=== PATIENT | male | born 1955 | race Caucasian/White ===

== ENCOUNTER → 2022-04-01 07:57 | Outpatient (CLI) | payer MEDICARE, OTHER, SELFPAY ==
[2022-04-01 08:25] LABS: Add Manual Diff / Slide Review NO; Basophils Absolute Auto 0 /uL (0-100); Basophils Percent Auto 0.8 % (0-2); Eosinophils Absolute Auto 100 /uL (0-450); Hematocrit 42.2 % (41-53); Hemoglobin 14.2 g/dL (13.5-17.5); Lymphocytes Absolute Auto 1300 /uL (1100-4500); Mean Corpuscular HGB Conc 33.6 % (30-36); Mean Corpuscular Hemoglobin 31.3 PG (26-34); Mean Corpuscular Volume 93.1 fL (80-100); Monocytes Absolute Auto 300 /uL (0-900); Monocytes Percent Auto 7.4 % (3-14); Neutrophils Absolute Auto 2600 /uL (1500-7000); Neutrophils Percent Auto 58.8 % (50-75); Platelet Count 278 X10^3/uL (150-400); Red Blood Cell Count 4.54 X10^6/uL (4.5-5.9); Red Cell Distribution Width 13.4 % (11.6-14.8); White Blood Cell Count 4.5 X10^3/uL (4.5-11.0)
[2022-04-01 09:31] LABS: Alanine Aminotransferase 26 IU/L (<50); Alkaline Phosphatase 77 U/L (38-126); Aspartate Aminotransferase 25 IU/L (17-59); BUN Creatinine Ratio 14.9 (6-22); Bilirubin Total 1.9 mg/dL (0.2-1.3); Blood Urea Nitrogen 11 mg/dL (9-20); Calcium 9.2 mg/dL (8.4-10.2); Carbon Dioxide 25 mmol/L (22-32); Chloride 99 mmol/L (98-107); Cholesterol 154 mg/dL (140-199); Estimated Glomerular Filt Rate > 60 mL/min (>60); Glucose 99 mg/dL (80-110); HDL Cholesterol 51 mg/dL (40-60); HEMOLYSIS < 15 (0-50); LDL Cholesterol Calculated 90 mg/dL (<100); Potassium 4.2 mmol/L (3.4-5.1); Sodium 135 mmol/L (137-145); Total Protein 7.3 g/dL (6.3-8.2); Triglycerides 63 mg/dL (35-150)
[2022-04-01 09:44] LABS: Vitamin D 25 Hydroxy (D3) 38.8 ng/mL (30.0-100.0)
[2022-04-05 15:42] LABS: Albumin 4.4 g/dL (3.5-5.0); Albumin Globulin Ratio 1.5 (1.0-2.8); Globulin 2.9 g/dL (1.7-4.1)
== END ==
PROVIDERS: PCP Family Medicine; Referring Provider Family Medicine; Visit Provider Family Medicine
DX: E78.5 Hyperlipidemia, unspecified (principal); E55.9 Vitamin D deficiency, unspecified
CPT/HCPCS: 36415; 80053; 80061; 82306; 83036; 85025

== ENCOUNTER → 2022-04-08 10:57 | Outpatient (CLI) | payer MEDICARE, OTHER, SELFPAY ==
[2022-04-09 07:37] LABS: Fecal Immunochemical Test Negative (Negative)
== END ==
PROVIDERS: PCP Family Medicine; Referring Provider Family Medicine; Visit Provider Family Medicine
DX: Z12.11 Encounter for screening for malignant neoplasm of colon (principal)
CPT/HCPCS: 82274

== ENCOUNTER 2022-10-13 09:56 | Inpatient (IN) | payer MEDICARE, OTHER, SELFPAY ==
[2022-10-13] VITALS (19 sets, daily range): BP systolic 119–155; BP diastolic 64–81; PULSE 81–94; RESP 16–18; TEMP 36.9–38.8; O2SAT 92–98; BMI 23.5; BMI 24.0
--- NOTE | 2022-10-13 10:08 | ED.GENADULT ---
HPI - General Adult General Chief complaint: Urogenital-Male Stated complaint: rib pain, diff breathing Time Seen by Provider: 10/13/22 10:03 History of Present Illness HPI narrative: 67-year-old male former smoker with history of hyperlipidemia and chronic sinusitis presents with his in the chief complaint of right-sided chest and flank pain with fevers for the past few days. He states that he has sharp and stabbing pain that is worse with deep breath and with motion. He states that he feels short of breath but is certain that it is only because breathing hurts. His fevers just started last night. He denies any nausea or vomiting. He denies any diarrhea but has had episodes of constipation. He has been self cathing himself for quite some time secondary to a weak bladder that is thought to be related to urethral strictures secondary to a trauma at a young age. He denies any history of cancer or blood clot, he denies recent travel, trauma or injury. He states it for some time he is had little taste for food and has lost weight as a consequence. He feels overall fatigued and generally unwell Related Data Home Medications Medication Instructions Recorded Confirmed cholecalciferol (vitamin D3) 25 25 mcg PO DAILY 02/18/22 10/13/22 mcg (1,000 unit) capsule famotidine 20 mg tablet 20 mg PO BID 02/18/22 10/13/22 triamcinolone acetonide 0.1 % 1 applic topical BEDTIME PRN Skin 02/18/22 10/13/22 topical ointment Irritation Previous Rx's Medication Instructions Recorded atorvastatin 40 mg tablet 40 mg PO DAILY #90 tabs 02/18/22 fluticasone propionate 50 2 spray intranasal DAILY PRN nasal 06/04/22 mcg/actuation nasal congestion #16 grams spray,suspension (Flonase Allergy Relief) Allergies Allergy/AdvReac Type Severity Reaction Status Date / Time No Known Drug Allergies Allergy Unverified 06/04/22 14:34 Review of Systems Review of Systems Narrative: GENERAL: See HPI HEENT: Denies sinus pain, ear pain, sore throat, difficulty swallowing, dizziness. RESPIRATORY: See HPI CARDIOVASCULAR: Denies chest pain, palpitations, orthopnea, edema, GASTROINTESTINAL: Denies nausea, vomiting, abdominal pain, diarrhea, constipation, melena. : Denies dysuria, frequency, incontinence, hematuria, urinary retention. MUSCULOSKELETAL: denies weakness, joint pain, or bony pain SKIN: Denies rash, skin lesions, or other NEUROLOGIC: Denies weakness, headache, numbness, change in speech, confusion, seizures, incoordination. PSYCHIATRIC: No concerning psychosocial issues. 12 point review of systems is negative except for those stated above Patient History Medical History (Updated 10/13/22 @ 14:24 by Geovany Villafana DO) Atonic bladder Chicken pox Hearing loss (~1984) Hyperlipidemia Measles Medicare annual wellness visit, initial Memory change Mumps Self-catheterizes urinary bladder Urethral stricture Vitamin D deficiency Surgical History (Updated 04/01/22 @ 21:22 by Kailyn Rosa) Anesthesia History of elbow surgery History of left hip replacement (~04/2007) History of right hip replacement (~01/2008) History of tonsillectomy (~1966) Urethral stricture Family History (Updated 04/01/22 @ 21:24 by Kailyn Rosa) Father History of heart disease Hyperlipidemia Grandfather Cancer Grandmother Stroke Grandmother Cancer Social History household members: spouse Smoking Status: Former smoker alcohol intake: former Smoking Status: Unknown if ever smoked Exam Narrative Exam Narrative: GENERAL: [67] year old patient appears stated age. Well-developed patient, in mild distress. HEAD: Atraumatic. Normocephalic. EYES: Pupils equal round and reactive. Extraocular motions intact. No scleral icterus. No injection or drainage. ENT: Nose without bleeding, purulent drainage. Throat without erythema, tonsillar hypertrophy or exudate. Airway patent. NECK: Trachea midline. Non tender CARDIOVASCULAR: Regular rate and rhythm without murmurs, gallops, or rubs. RESPIRATORY: rapid shallow breathing, appears painful. Decreased sounds R base. GASTROINTESTINAL: Abdomen soft, non-tender, nondistended. EXTREMITIES: No edema or joint tenderness. BACK: Nontender without deformity or crepitance. No flank tenderness. NEURO: AOx3. SKIN: No rash or erythema of visible areas Initial Vital Signs Initial Vital Signs: Vital Signs Temperature 98.5 F 10/13/22 09:59 Pulse Rate 93 H 10/13/22 09:59 Respiratory Rate 16 10/13/22 09:59 Blood Pressure 155/81 H 10/13/22 09:59 Pulse Oximetry 96 10/13/22 09:59 Oxygen Delivery Method Room Air 10/13/22 09:59 Course Orders Ordered: ED Orders 10/13/22 10:17 Urine Microscopic Stat 10/13/22 10:20 XR chest 1V Stat BNP [NT-proBNP (BNP-Adult 18+)] Stat Complete Blood Count AUTO DIFF Stat Comprehensive Metabolic Panel Stat D Dimer Stat Lactate (Lactic Acid) Stat Lipase Stat PTT Partial Thromboplastin Alvarez Stat Procalcitonin Stat Prothrombin Time INR Stat Troponin & CK Cardiac Panel Stat RT Consult Eval and Treat NOW 10/13/22 10:40 EKG-12 Lead Stat 10/13/22 10:50 Blood Culture Stat 10/13/22 11:01 CT angio chest PE protocol Stat 10/13/22 11:02 CT abdomen pelvis w con Stat Acetaminophen (Acetaminophen 325 Mg Tablet) 650 mg PO Q4H PRN PRN Reason: Fever/Mild Pain (1-3) Atorvastatin Calcium (Atorvastatin 20 Mg Tablet) 40 mg PO DAILY ARELY Famotidine (Famotidine 20 Mg Tablet) 20 mg PO BID ARELY Fluticasone Propionate (Fluticasone 120 [place]/16 Gm [place].Susp) 2 spray NASAL DAILY PRN PRN Reason: nasal congestion Heparin Sodium (Porcine) (Heparin 5,000 Unit/Ml Vial) 5,000 unit SUBCUT BID ARELY Hydromorphone HCl (Hydromorphone 0.5 Mg Inj) 0.5 mg IV Q3H PRN PRN Reason: Pain, Moderate (4-6) Hydromorphone HCl (Hydromorphone 2 Mg Tablet) 2 mg PO Q3H PRN PRN Reason: Pain, Severe (7-10) Ceftriaxone Sodium 2,000 mg/ (Sodium Chloride) 100 mls @ 200 mls/hr IV Q24H ARELY Metronidazole (Flagyl) 500 mg in 100 mls @ 100 mls/hr IV Q8H ARELY Loratadine (Loratadine 10 Mg Tablet) 10 mg PO DAILY PRN PRN Reason: allergy symptoms Melatonin (Melatonin 3 Mg Tablet) 3 mg PO BEDTIME ARELY Ondansetron HCl (Ondansetron 4 Mg/2 Ml Inj) 4 mg IV Q4HR PRN PRN Reason: Nausea And Vomiting Sennosides (Sennosides 8.6 Mg Tablet) 17.2 mg PO BEDTIME ARELY Vitamin D (Cholecalciferol (Vitamin D3) 1,000 Unit Tablet) 1,000 unit PO DAILY ARELY Discontinued Medications Sodium Chloride (Normal Saline 0.9%) 1,000 mls @ 1,000 mls/hr IV BOLUS ONE Stop: 10/13/22 11:19 Last Infusion: 10/13/22 13:21 Dose: 0 mls/hr Documented By: Admin: 10/13/22 10:40 Dose: 1,000 mls/hr Documented By: AILEEN Ceftriaxone Sodium 2,000 mg/ (Sodium Chloride) 100 mls @ 200 mls/hr IV NOW ONE Stop: 10/13/22 13:49 Last Infusion: 10/13/22 14:38 Dose: 0 mls/hr Documented By: Admin: 10/13/22 14:08 Dose: 200 mls/hr Documented By: JORDON Metronidazole (Flagyl) 500 mg in 100 mls @ 100 mls/hr IV NOW ONE Stop: 10/13/22 14:47 Last Infusion: 10/13/22 16:00 Dose: 0 mls/hr Documented By: Admin: 10/13/22 14:19 Dose: 100 mls/hr Documented By: PATRIC Ketorolac Tromethamine (Ketorolac 30 Mg/Ml Vial) 15 mg IV NOW ONE Stop: 10/13/22 11:57 Last Admin: 10/13/22 12:03 Dose: Not Given Documented By: JORDON Vital Signs Vital signs: Vital Signs - 8 hr 10/13/22 09:59 10/13/22 10:29 10/13/22 10:30 Temperature 98.5 F Pulse Rate 93 H 85 Respiratory Rate 16 Blood Pressure 155/81 H 127/68 Pulse Oximetry 96 98 Oxygen Delivery Method Room Air 10/13/22 10:30 10/13/22 11:00 10/13/22 11:01 Temperature Pulse Rate 81 94 H Respiratory Rate Blood Pressure 136/71 Pulse Oximetry 98 98 Oxygen Delivery Method 10/13/22 11:01 10/13/22 11:30 10/13/22 11:30 Temperature Pulse Rate 88 83 Respiratory Rate Blood Pressure 125/68 Pulse Oximetry 96 98 Oxygen Delivery Method 10/13/22 12:00 10/13/22 12:01 10/13/22 12:01 Temperature Pulse Rate 89 89 Respiratory Rate Blood Pressure 145/72 H Pulse Oximetry 98 98 Oxygen Delivery Method 10/13/22 12:30 10/13/22 12:30 10/13/22 13:00 Temperature Pulse Rate 83 Respiratory Rate Blood Pressure 127/70 119/64 Pulse Oximetry 98 Oxygen Delivery Method 10/13/22 13:00 10/13/22 13:30 10/13/22 13:30 Temperature Pulse Rate 82 82 Respiratory Rate Blood Pressure 130/69 Pulse Oximetry 97 98 Oxygen Delivery Method 10/13/22 14:00 10/13/22 14:00 Temperature Pulse Rate 82 Respiratory Rate Blood Pressure 133/69 Pulse Oximetry 97 Oxygen Delivery Method Medical Decision Making Lab Data 10/13/22 10:20 10/13/22 10:20 Labs: Lab Results 10/13/22 10/13/22 10/13/22 Range/Units 10:17 10:20 10:20 WBC 16.7 H (4.5-11.0) X10^3/uL RBC 3.99 L (4.5-5.9) X10^6/uL Hgb 11.0 L (13.5-17.5) g/dL Hct 33.0 L (41-53) % MCV 82.9 (80-100) fL MCH 27.5 (26-34) PG MCHC 33.1 (30-36) % RDW 15.1 H (11.6-14.8) % Plt Count 619 H (150-400) X10^3/uL Neut % (Auto) 90.4 H (50-75) % Lymph % (Auto) 3.4 L (25-40) % [place] % (Auto) 6.0 (3-14) % Eos % (Auto) 0.1 L (2-4) % Baso % (Auto) 0.1 (0-2) % Neut # (Auto) 23486 H (0706-7918) /uL Lymph # (Auto) 600 L (7727-2071) /uL [place] # (Auto) 1000 H (0-900) /uL Eos # (Auto) 0 (0-450) /uL Baso # (Auto) 0 (0-100) /uL PT 16.2 H (10.1-12.7) SECONDS INR 1.4 H (0.9-1.3) APTT 33 (26-36) SECONDS D-Dimer (<500) ng/ml Sodium (137-145) mmol/L Potassium (3.4-5.1) mmol/L Chloride (98-107) mmol/L Carbon Dioxide (22-32) mmol/L BUN (9-20) mg/dL Creatinine (0.66-1.25) mg/dL Estimated GFR (>60) mL/min BUN/Creatinine Ratio (6-22) Glucose (80-110) mg/dL Lactate (0.7-2.1) mmol/L Calcium (8.4-10.2) mg/dL Total Bilirubin (0.2-1.3) mg/dL AST (17-59) IU/L ALT (<50) IU/L Alkaline Phosphatase (38-126) U/L Total Creatine Kinase (55-170) U/L Troponin I (0.01-0.034) ng/mL NT-Pro-B Natriuret Pep (<125) pg/mL Total Protein (6.3-8.2) g/dL Albumin (3.5-5.0) g/dL Globulin (1.7-4.1) g/dL Albumin/Globulin Ratio (1.0-2.8) Lipase (23-300) U/L Procalcitonin (<0.5) ng/mL Urine RBC 0-1/hpf (0-5/HPF) Urine WBC 0-1/hpf (0-5/HPF) Ur Squamous Epith Cells None seen (0-5/HPF) Urine Bacteria None seen (None) Ur Culture Indicated? Cult not indicated 10/13/22 10/13/22 10/13/22 Range/Units 10:20 10:20 10:20 WBC (4.5-11.0) X10^3/uL RBC (4.5-5.9) X10^6/uL Hgb (13.5-17.5) g/dL Hct (41-53) % MCV (80-100) fL MCH (26-34) PG MCHC (30-36) % RDW (11.6-14.8) % Plt Count (150-400) X10^3/uL Neut % (Auto) (50-75) % Lymph % (Auto) (25-40) % [place] % (Auto) (3-14) % Eos % (Auto) (2-4) % Baso % (Auto) (0-2) % Neut # (Auto) (7087-9813) /uL Lymph # (Auto) (6995-7454) /uL [place] # (Auto) (0-900) /uL Eos # (Auto) (0-450) /uL Baso # (Auto) (0-100) /uL PT (10.1-12.7) SECONDS INR (0.9-1.3) APTT (26-36) SECONDS D-Dimer 1659 H (<500) ng/ml Sodium 133 L (137-145) mmol/L Potassium 4.2 (3.4-5.1) mmol/L Chloride 95 L (98-107) mmol/L Carbon Dioxide 28 (22-32) mmol/L BUN 9 (9-20) mg/dL Creatinine 0.61 L (0.66-1.25) mg/dL Estimated GFR > 60 (>60) mL/min BUN/Creatinine Ratio 14.8 (6-22) Glucose 111 H (80-110) mg/dL Lactate 1.2 (0.7-2.1) mmol/L Calcium 9.0 (8.4-10.2) mg/dL Total Bilirubin 1.1 (0.2-1.3) mg/dL AST 22 (17-59) IU/L ALT 22 (<50) IU/L Alkaline Phosphatase 165 H (38-126) U/L Total Creatine Kinase (55-170) U/L Troponin I (0.01-0.034) ng/mL NT-Pro-B Natriuret Pep (<125) pg/mL Total Protein 7.2 (6.3-8.2) g/dL Albumin 3.6 (3.5-5.0) g/dL Globulin 3.6 (1.7-4.1) g/dL Albumin/Globulin Ratio 1.0 (1.0-2.8) Lipase 47 (23-300) U/L Procalcitonin 0.44 (<0.5) ng/mL Urine RBC (0-5/HPF) Urine WBC (0-5/HPF) Ur Squamous Epith Cells (0-5/HPF) Urine Bacteria (None) Ur Culture Indicated? 10/13/22 Range/Units 10:20 WBC (4.5-11.0) X10^3/uL RBC (4.5-5.9) X10^6/uL Hgb (13.5-17.5) g/dL Hct (41-53) % MCV (80-100) fL MCH (26-34) PG MCHC (30-36) % RDW (11.6-14.8) % Plt Count (150-400) X10^3/uL Neut % (Auto) (50-75) % Lymph % (Auto) (25-40) % [place] % (Auto) (3-14) % Eos % (Auto) (2-4) % Baso % (Auto) (0-2) % Neut # (Auto) (0212-4670) /uL Lymph # (Auto) (6159-8204) /uL [place] # (Auto) (0-900) /uL Eos # (Auto) (0-450) /uL Baso # (Auto) (0-100) /uL PT (10.1-12.7) SECONDS INR (0.9-1.3) APTT (26-36) SECONDS D-Dimer (<500) ng/ml Sodium (137-145) mmol/L Potassium (3.4-5.1) mmol/L Chloride (98-107) mmol/L Carbon Dioxide (22-32) mmol/L BUN (9-20) mg/dL Creatinine (0.66-1.25) mg/dL Estimated GFR (>60) mL/min BUN/Creatinine Ratio (6-22) Glucose (80-110) mg/dL Lactate (0.7-2.1) mmol/L Calcium (8.4-10.2) mg/dL Total Bilirubin (0.2-1.3) mg/dL AST (17-59) IU/L ALT (<50) IU/L Alkaline Phosphatase (38-126) U/L Total Creatine Kinase 28 L (55-170) U/L Troponin I < 0.012 (0.01-0.034) ng/mL NT-Pro-B Natriuret Pep 261 H (<125) pg/mL Total Protein (6.3-8.2) g/dL Albumin (3.5-5.0) g/dL Globulin (1.7-4.1) g/dL Albumin/Globulin Ratio (1.0-2.8) Lipase (23-300) U/L Procalcitonin (<0.5) ng/mL Urine RBC (0-5/HPF) Urine WBC (0-5/HPF) Ur Squamous Epith Cells (0-5/HPF) Urine Bacteria (None) Ur Culture Indicated? Urine Dip Bedside Urine Glucose Negative Bedside Urine Bilirubin - Negative Bedside Urine Ketone - Negative Urine Specific [place] 1.000 Bedside Urine Occult Blood +/- Bedside Urine pH 6.0 Bedside Urine Protein - Negative Bedside Urine Urobilinogen - Negative Bedside Urine Nitrite - Negative Bedside Urine Leukocytes - Negative Esterase Point of care testing: Urine Dip Bedside Urine Glucose Negative Bedside Urine Bilirubin - Negative Bedside Urine Ketone - Negative Urine Specific [place] 1.000 Bedside Urine Occult Blood +/- Bedside Urine pH 6.0 Bedside Urine Protein - Negative Bedside Urine Urobilinogen - Negative Bedside Urine Nitrite - Negative Bedside Urine Leukocytes - Negative Esterase MDM Narrative Medical decision making narrative: CC: 67-year-old male presents with fever, chills and right-sided pleuritic-type chest pain with shortness of breath Complicating co-morbidities: Age, former smoker Data collected from: Patient Medical records reviewed: Prior notes reviewed in our EMR Differential considered, but not limited to: Pneumonia versus pulmonary embolism versus pyelonephritis versus other Exam documented above, pertinent findings include: Obviously uncomfortable, rapid shallow breathing, decreased lung sounds right base, abdomen soft Lab Test results independently reviewed as above. Pertinent findings: Leukocytosis with left shift, electrolytes and renal function within normal limits, alk-phos slightly elevated, procalcitonin elevated at 0.44 Independently reviewed EKG as above Imaging studies independently reviewed: Chest x-ray demonstrates right lower lobe pneumonia, CT angiogram chest with PE protocol demonstrates no PE but does note a 6.4 x 5.9 cm abutting the lateral pleura with associated pleural effusion, suggesting either large necrotic appearing mass or less likely infectious process. Consultations: 1.Dr. Jimenez (Radiology) - recommends admission, ABX for a few days, re-image, then discussion about possible CT guided drainage 2.Dr. Valles (Gen Surg [facility]) - agress with above, no ability to accept patient today, likely could receive appropriate care her Treatments: Re-evaluations: Discussion: Disposition: see below, along with detailed discharge instructions that have been reviewed with patient as well as indications for ED re-evaluation and additional outpatient follow up Discharge Plan Departure Patient Disposition: Admitted As Inpatient Clinical Impression: Right lower lobe lung mass, Pleural effusion Admit Date/Time: 10/13/22 14:16 Admit Provider: Marielle Baltazar
--- NOTE | 2022-10-13 10:20 | DI.RAD.S_ITS ---
PROCEDURE: XR CHEST 1V INDICATIONS: suspected sepsis TECHNIQUE: One view of the chest was acquired. COMPARISON: None. FINDINGS: Surgical changes and devices: None. Lungs and pleura: Right lower lobe pulmonary infiltrate present. Left lung and both pleural spaces clear Mediastinum: Mediastinal contours appear normal. Heart size is normal. Bones and chest wall: No suspicious bony lesions. Overlying soft tissues appear unremarkable. Old healed right clavicular fracture IMPRESSION: Right lower lobe pulmonary infiltrate, consistent with pneumonia Approved by: Adrian Villagomez M.D. on 10/13/2022 at 10:41
[2022-10-13 10:33] LABS: Add Manual Diff / Slide Review NO; Basophils Absolute Auto 0 /uL (0-100); Basophils Percent Auto 0.1 % (0-2); Eosinophils Absolute Auto 0 /uL (0-450); Eosinophils Percent Auto 0.1 % (2-4); Lymphocytes Absolute Auto 600 /uL (1100-4500); Lymphocytes Percent Auto 3.4 % (25-40); Mean Corpuscular HGB Conc 33.1 % (30-36); Mean Corpuscular Hemoglobin 27.5 PG (26-34); Mean Corpuscular Volume 82.9 fL (80-100); Monocytes Absolute Auto 1000 /uL (0-900); Neutrophils Absolute Auto 15100 /uL (1500-7000); Neutrophils Percent Auto 90.4 % (50-75); Platelet Count 619 X10^3/uL (150-400); Red Blood Cell Count 3.99 X10^6/uL (4.5-5.9); Red Cell Distribution Width 15.1 % (11.6-14.8); White Blood Cell Count 16.7 X10^3/uL (4.5-11.0)
[2022-10-13] MEDS: SODIUM CHLORIDE 0.9% 1,000 ML 1000 ML IV (10:40)
[2022-10-13 10:47] LABS: INR 1.4 (0.9-1.3); Prothrombin Time 16.2 SECONDS (10.1-12.7)
[2022-10-13 10:48] LABS: Bacteria Urine None Seen; Culture Indicated Urine Cult Not Indicated; RBC Urine 0-1/HPF (0-5/HPF); Squamous Epithelial Cell Urine None Seen (0-5/HPF); WBC Urine 0-1/HPF (0-5/HPF)
[2022-10-13 10:50] LABS: Creatine Kinase 28 U/L (55-170); PTT Partial Thromboplastin Tim 33 SECONDS (26-36)
[2022-10-13 10:51] LABS: Lactate (Lactic Acid) 1.2 mmol/L (0.7-2.1)
[2022-10-13 10:58] LABS: Alanine Aminotransferase 22 IU/L (<50); Albumin 3.6 g/dL (3.5-5.0); Alkaline Phosphatase 165 U/L (38-126); Aspartate Aminotransferase 22 IU/L (17-59); BUN Creatinine Ratio 14.8 (6-22); Bilirubin Total 1.1 mg/dL (0.2-1.3); Blood Urea Nitrogen 9 mg/dL (9-20); Carbon Dioxide 28 mmol/L (22-32); Chloride 95 mmol/L (98-107); Estimated Glomerular Filt Rate > 60 mL/min (>60); Globulin 3.6 g/dL (1.7-4.1); Glucose 111 mg/dL (80-110); HEMOLYSIS < 15 (0-50); Lipase 47 U/L (23-300); Potassium 4.2 mmol/L (3.4-5.1); Sodium 133 mmol/L (137-145); Total Protein 7.2 g/dL (6.3-8.2)
[2022-10-13 11:00] LABS: D Dimer 1659 ng/ml (<500)
--- NOTE | 2022-10-13 11:01 | DI.CT.S_ITS ---
PROCEDURE: CT ANGIO CHEST PE PROTOCOL INDICATIONS: chest pain, pleuritic, critical Dimer TECHNIQUE: After the administration of intravenous contrast, 2 mm thick sections acquired from the pulmonary apices to the posterior costophrenic angles. MIP reformats of the arterial vasculature were utilized. For radiation dose reduction, the following was used: automated exposure control, adjustment of mA and/or kV according to patient size. COMPARISON: None. FINDINGS: Image quality: Excellent. Pulmonary arteries: Pulmonary arteries are normal in size, and demonstrate no intraluminal filling defects to suggest central pulmonary embolism. Lungs and pleura: In the right lower lobe, there is a large necrotic appearing mass lesion measuring 6.4 by 5.9 cm abutting the lateral pleural . Associated small pleural effusion present as well. There is a benign-appearing calcified nodule in the left lower lobe measuring 7 mm. Pleural spaces clear. No mediastinal or axillary adenopathy. No rib erosion. Mediastinum: Heart size is normal, without pericardial effusion. No mediastinal or hilar adenopathy. Thoracic aorta is normal in caliber and enhancement. Esophagus is normal in caliber, without hiatal hernia. Bones and chest wall: No suspicious bony lesions. Ribs and thoracic spine appear intact throughout. Thyroid gland unremarkable. No axillary or supraclavicular adenopathy. Abdomen: Visualized upper abdominal solid organs appear normal in the early arterial phase of enhancement. Small left hepatic simple cyst. Multiple splenic granulomatous IMPRESSION: No evidence of pulmonary embolism, aortic aneurysm or dissection. Large right lower lobe neck chronic appearing mass lesion would be amendable to CT-guided percutaneous biopsy. Right lower lobe pleural effusion Approved by: Adrian Villagomez M.D. on 10/13/2022 at 11:52
--- NOTE | 2022-10-13 11:02 | DI.CT.S_ITS ---
PROCEDURE: CT ABDOMEN PELVIS W CON INDICATIONS: severe R flank pain, weight loss TECHNIQUE: After the administration of intravenous contrast, axial sections acquired from the lung bases to the pubic symphysis. Coronal and sagittal reformats were performed. For radiation dose reduction, the following was used: automated exposure control, adjustment of mA and/or kV according to patient size. COMPARISON: None. FINDINGS: Lower thorax: In the right lower lobe, there is an irregular mass lesion with internal fluid and irregular peripheral soft tissue. There is pleural thickening no evidence of rib erosion or chest wall invasion. Associated pleural effusion present as well. Left lung is clear. Liver: Normal in size and attenuation. No contour deformity present. Small subcentimeter left hepatic simple cyst. Biliary system: No calcified cholelithiasis or pericholecystic inflammation. No intra or extrahepatic bile duct dilatation. Pancreas: Unremarkable without mass or inflammation evident. Spleen: Splenic calcified granulomas present. Adrenals: Normal morphology and density. Reproductive system: Unremarkable as visualized. Urinary system: Normal renal size and attenuation. No renal calculi, hydronephrosis, or solid mass present. Urinary bladder unremarkable. Gastrointestinal system: Moderate fecal debris in the right colon Appendix: Normal appendix identified. No evidence of appendicitis. Peritoneal spaces: No mesenteric or retroperitoneal adenopathy. No free air. No free fluid. Vasculature: The IVC, aorta and iliac vasculature are unremarkable. Abdominal wall: Abdominal wall intact without evidence of ventral or inguinal hernias. Musculoskeletal: Normal bone mineralization. Degenerative disc disease and arthropathy noted in lower lumbar spine. Severe central stenosis L4-5, L3-4 Bilateral hip prosthesis limits assessment of images in the pelvis No acute fractures. IMPRESSION: 1. Right lower lobe irregular mass lesion with central fluid. Differential includes neoplasm, abscess and less likely empyema. Consider percutaneous drainage/biopsy. 2. Degenerative disc disease and arthropathy results in severe central stenosis L3-4 and L4-5 Approved by: Adrian Villagomez M.D. on 10/13/2022 at 12:02
[2022-10-13 11:03] LABS: NT-proBNP (BNP-Adult 18+) 261 pg/mL (<125); Troponin I < 0.012 ng/mL (0.01-0.034)
[2022-10-13 11:15] LABS: Procalcitonin 0.44 ng/mL (<0.5)
[2022-10-13] MEDS: cefTRIAXone 2,000 MG in SODIUM CHLORIDE 0.9% 100 ML 200 MG IV (14:08)
[2022-10-13] MEDS: metroNIDAZOLE 500 MG/100 ML PIGGYBACK 100 MG IV ×2 (14:19→23:26)
--- NOTE | 2022-10-13 15:47 | PM.HP.1 ---
History of Present Illness History of Present Illness Date Patient Seen: 10/13/22 Chief complaint: rib pain, diff breathing Narrative: Theron Stallings is a 67-year-old male former smoker with history of hyperlipidemia and chronic sinusitis presents with his in the chief complaint of right-sided chest and flank pain with fevers for the past few days.? He stated that he has sharp and stabbing pain that is worse with deep breath and with motion.? He stated that he feels short of breath but is certain that it is only because breathing hurts.? His fevers just started last night.? He denied any nausea or vomiting.? He denied any diarrhea but has had episodes of constipation.? He has been self cathing himself for quite some time secondary to a weak bladder that is thought to be related to urethral strictures secondary to a trauma at a young age.? He denied any history of cancer or blood clot, he denied recent travel, trauma or injury.? He stated it for some time he is had little taste for food and has lost weight as a consequence.? He has felt overall fatigued and generally unwell recently. [facility] Medical History (Updated 10/13/22 @ 14:24 by Geovany Villafana DO) Atonic bladder Chicken pox Hearing loss (~1984) Hyperlipidemia Measles Medicare annual wellness visit, initial Memory change Mumps Self-catheterizes urinary bladder Urethral stricture Vitamin D deficiency Surgical History (Updated 04/01/22 @ 21:22 by Kailyn Rosa) Anesthesia History of elbow surgery History of left hip replacement (~04/2007) History of right hip replacement (~01/2008) History of tonsillectomy (~1966) Urethral stricture Family History (Updated 04/01/22 @ 21:24 by Kailyn Rosa) Father History of heart disease Hyperlipidemia Grandfather Cancer Grandmother Stroke Grandmother Cancer Social History Smoking Status: Unknown if ever smoked Meds Home Medications and Allergies Home Medications Medication Instructions Recorded Confirmed Type atorvastatin 40 mg tablet 40 mg PO DAILY #90 tabs 02/18/22 10/13/22 Rx cholecalciferol (vitamin D3) 25 25 mcg PO DAILY 02/18/22 10/13/22 History mcg (1,000 unit) capsule famotidine 20 mg tablet 20 mg PO BID 02/18/22 10/13/22 History triamcinolone acetonide 0.1 % 1 applic topical BEDTIME PRN Skin 02/18/22 10/13/22 History topical ointment Irritation fluticasone propionate 50 2 spray intranasal DAILY PRN nasal 06/04/22 10/13/22 Rx mcg/actuation nasal congestion #16 grams spray,suspension (Flonase Allergy Relief) Allergies Allergy/AdvReac Type Severity Reaction Status Date / Time No Known Drug Allergies Allergy Unverified 06/04/22 14:34 Review of Systems Review of Systems Narrative: Fourteen system review was completed and pertinent findings in the history of chief complaint. Exam Vital Signs (past 8 hours): - 10/13/22 09:59 10/13/22 10:29 10/13/22 10:30 Temperature 98.5 F Pulse Rate 93 H 85 Respiratory Rate 16 Blood Pressure 155/81 H 127/68 Pulse Oximetry 96 98 Oxygen Delivery Method Room Air 10/13/22 10:30 10/13/22 11:00 10/13/22 11:01 Temperature Pulse Rate 81 94 H Respiratory Rate Blood Pressure 136/71 Pulse Oximetry 98 98 Oxygen Delivery Method 10/13/22 11:01 10/13/22 11:30 10/13/22 11:30 Temperature Pulse Rate 88 83 Respiratory Rate Blood Pressure 125/68 Pulse Oximetry 96 98 Oxygen Delivery Method 10/13/22 12:00 10/13/22 12:01 10/13/22 12:01 Temperature Pulse Rate 89 89 Respiratory Rate Blood Pressure 145/72 H Pulse Oximetry 98 98 Oxygen Delivery Method 10/13/22 12:30 10/13/22 12:30 10/13/22 13:00 Temperature Pulse Rate 83 Respiratory Rate Blood Pressure 127/70 119/64 Pulse Oximetry 98 Oxygen Delivery Method 10/13/22 13:00 10/13/22 13:30 10/13/22 13:30 Temperature Pulse Rate 82 82 Respiratory Rate Blood Pressure 130/69 Pulse Oximetry 97 98 Oxygen Delivery Method 10/13/22 14:00 10/13/22 14:00 10/13/22 14:30 Temperature Pulse Rate 82 Respiratory Rate Blood Pressure 133/69 130/70 Pulse Oximetry 97 Oxygen Delivery Method 10/13/22 14:30 10/13/22 15:00 10/13/22 15:00 Temperature Pulse Rate 86 89 Respiratory Rate Blood Pressure 126/71 Pulse Oximetry 97 97 Oxygen Delivery Method Oxygen Delivery Method Room Air Narrative Exam Narrative: GENERAL: patient appears stated age. Well-developed patient, in mild distress. HEAD: Atraumatic. Normocephalic. EYES: Pupils equal round and reactive. Extraocular motions intact. No scleral icterus. No injection or drainage. ENT: Nose without bleeding, purulent drainage. Throat without erythema, tonsillar hypertrophy or exudate. Airway patent. NECK: Trachea midline. Non tender CARDIOVASCULAR: Regular rate and rhythm without murmurs, gallops, or rubs. RESPIRATORY: shallow breathing, appears painful to breathe. Decreased sounds R base. GASTROINTESTINAL: Abdomen soft, non-tender, nondistended. EXTREMITIES: No edema or joint tenderness. BACK: Nontender without deformity or crepitance. No flank tenderness. NEURO: AOx3. SKIN: No rash or erythema of visible areas Objective Labs 10/13/22 10:20 10/13/22 10:20 Labs: Laboratory Results - last 24 hr 10/13/22 10/13/22 10/13/22 10:17 10:20 10:20 WBC 16.7 H RBC 3.99 L Hgb 11.0 L Hct 33.0 L MCV 82.9 MCH 27.5 MCHC 33.1 RDW 15.1 H Plt Count 619 H Neut % (Auto) 90.4 H Lymph % (Auto) 3.4 L [place] % (Auto) 6.0 Eos % (Auto) 0.1 L Baso % (Auto) 0.1 Neut # (Auto) 36317 H Lymph # (Auto) 600 L [place] # (Auto) 1000 H Eos # (Auto) 0 Baso # (Auto) 0 PT 16.2 H INR 1.4 H APTT 33 D-Dimer Sodium Potassium Chloride Carbon Dioxide BUN Creatinine Estimated GFR BUN/Creatinine Ratio Glucose Lactate Calcium Total Bilirubin AST ALT Alkaline Phosphatase Total Creatine Kinase Troponin I NT-Pro-B Natriuret Pep Total Protein Albumin Globulin Albumin/Globulin Ratio Lipase Procalcitonin Urine RBC 0-1/hpf Urine WBC 0-1/hpf Ur Squamous Epith Cells None seen Urine Bacteria None seen Ur Culture Indicated? Cult not indicated 10/13/22 10/13/22 10/13/22 10:20 10:20 10:20 WBC RBC Hgb Hct MCV MCH MCHC RDW Plt Count Neut % (Auto) Lymph % (Auto) [place] % (Auto) Eos % (Auto) Baso % (Auto) Neut # (Auto) Lymph # (Auto) [place] # (Auto) Eos # (Auto) Baso # (Auto) PT INR APTT D-Dimer 1659 H Sodium 133 L Potassium 4.2 Chloride 95 L Carbon Dioxide 28 BUN 9 Creatinine 0.61 L Estimated GFR > 60 BUN/Creatinine Ratio 14.8 Glucose 111 H Lactate 1.2 Calcium 9.0 Total Bilirubin 1.1 AST 22 ALT 22 Alkaline Phosphatase 165 H Total Creatine Kinase Troponin I NT-Pro-B Natriuret Pep Total Protein 7.2 Albumin 3.6 Globulin 3.6 Albumin/Globulin Ratio 1.0 Lipase 47 Procalcitonin 0.44 Urine RBC Urine WBC Ur Squamous Epith Cells Urine Bacteria Ur Culture Indicated? 10/13/22 10:20 WBC RBC Hgb Hct MCV MCH MCHC RDW Plt Count Neut % (Auto) Lymph % (Auto) [place] % (Auto) Eos % (Auto) Baso % (Auto) Neut # (Auto) Lymph # (Auto) [place] # (Auto) Eos # (Auto) Baso # (Auto) PT INR APTT D-Dimer Sodium Potassium Chloride Carbon Dioxide BUN Creatinine Estimated GFR BUN/Creatinine Ratio Glucose Lactate Calcium Total Bilirubin AST ALT Alkaline Phosphatase Total Creatine Kinase 28 L Troponin I < 0.012 NT-Pro-B Natriuret Pep 261 H Total Protein Albumin Globulin Albumin/Globulin Ratio Lipase Procalcitonin Urine RBC Urine WBC Ur Squamous Epith Cells Urine Bacteria Ur Culture Indicated? Assessment & Plan Assessment & Plan narrative: 1. Fever and chills. Blood cultures obtained. Await results. 2. Elevated white blood count. Concerning for infection. Blood cultures obtained. Lung findings consistent with?possible neoplasm, abscess and less likely empyema. Initiated treatment with ceftriaxone and metronidazole intravenously. Follow labs. When lab values indicate that the infection is more controlled, plan for Interventional radiology's drainage/biopsy. 3. Underlying urinary stricture. Patient self caths. Have supplies for the patient. 4. Hyperlipidemia. Continue atorvastatin 40 mg daily. 5. GERD. Continue famotidine 20 mg b.i.d. 6. Vitamin-D deficiency. Continue replacement. 7. Chronic allergic rhinitis/sinusitis possibly. Although patient says allergies have been ruled out, he does have chronic pharyngeal mucous. Continue patient's treatment with cetirizine and fluticasone. Start Mucinex. Follow labs and patient clinically. Code status: Full code DVT prophylaxis: Treat with heparin 5000 units subQ b.i.d. with the expectation procedure needs to be done any reversible anticoagulation. Surrogate decision maker: Patient's , Etelvina Stallings COVID-19 COVID-19 status: Not tested Result date/Date tested (Pos, Neg/Pending): 10/13/22 Time Spent With Patient Time with patient: 70 minutes or more, with 50% spent counseling/coordinating Quality VTE Deep Vein Thrombosis/Pulmonary Embolism Present on Admission: No MIPS - Admit I confirm the patient?s Advance Care Plan is present, Code status is documented, Surrogate decision maker is in patient?s record [If Yes, STOP here]: Yes MIPS - Meds 'Current medications' to include all prescriptions, [id number] products, herbals, cannabis/cannabidiol products, and vitamin/mineral/dietary (nutritional) supplements. I have utilized all available resources to obtain, update, or review the patient?s current medications. [If Yes, STOP here]: Yes
[2022-10-13] MEDS: HYDROMORPHONE 0.5 MG INJ IV (17:30)
[2022-10-13] MEDS: ONDANSETRON 4 MG/2 ML INJ IV (17:40)
[2022-10-13] MEDS: ACETAMINOPHEN 325 MG TABLET 650 MG PO (17:41)
[2022-10-13] MEDS: guaiFENesin ER 600 MG TAB PO (17:42)
[2022-10-13] MEDS: FLUTICASONE 120 SPRAY/16 GM SPRAY.SUSP NASAL (17:44)
[2022-10-13] MEDS: HYDROMORPHONE 1 MG INJ IV (17:55)
--- NOTE | 2022-10-13 19:46 | PC.NURSE ---
new admit: alert and oriented, voices needs. independant w/ mobility. PC w/ thick purulent sputum, patient reports the colors range from green to brown to yellow. tolerating RA. increased pain to R side chest/lung area when coughing. offered a blanket or pillow to splint. he declined. at rest he is ok, denies pain, but when coughing his pain is 9/10 dilauded IVP 0.5mg given w/little effect. spoke w/ dr gonzalez, new order for dilauded IVP x 1mg x 1. given w/ better effect. temp 102 when arrived to unit. PRN apap given, approx 1 hour later temp 99.9. declined dinner. but accepted fluids at bedside. self-cath 3x/day. given 16fr andrade and catheter bag. harlan at bedside, left after dinner. mellowing machine operator provided listening support for , she verbalized feeling stressed and worried. her phone number is on the white board in the room. report to noc.
[2022-10-13] MEDS: FAMOTIDINE 20 MG TABLET PO (21:07)
[2022-10-13] MEDS: HEPARIN 5,000 UNIT/ML VIAL 5000 UNIT SUBCUT (21:07)
[2022-10-14] VITALS (7 sets, daily range): BP systolic 102–123; BP diastolic 60–75; PULSE 73–91; RESP 16–18; TEMP 36.4–37.7; O2SAT 91–100
[2022-10-14] MEDS: metroNIDAZOLE 500 MG/100 ML PIGGYBACK 100 MG IV ×3 (06:08→23:24)
[2022-10-14] MEDS: HYDROMORPHONE 0.5 MG INJ IV ×2 (08:52→14:52)
[2022-10-14] MEDS: ATORVASTATIN 20 MG TABLET 40 MG PO (08:53)
[2022-10-14] MEDS: CHOLECALCIFEROL (VITAMIN D3) 1,000 UNIT TABLET 1000 UNIT PO (08:53)
[2022-10-14] MEDS: HEPARIN 5,000 UNIT/ML VIAL 5000 UNIT SUBCUT ×2 (08:53→20:28)
[2022-10-14] MEDS: FAMOTIDINE 20 MG TABLET PO ×2 (08:53→20:28)
--- NOTE | 2022-10-14 11:31 | CM.DANOTE ---
DCP Assessment Note: Patient is a 67yo Male here under inpatient status following right lower lobe lung mass pleural effusion. PCP: Peggy Song Payer: Medicare and [employer]. FRONT END DRUPAL DEVELOPER reviewed EMR. Per provider in rounds, patient is waiting either a drain or a biopsy of the mass on his lung and likely to be here a few days. FRONT END DRUPAL DEVELOPER entered room and introduced self and role. Patient was laying down and appeared A/Ox4. Patient was accompanied by spouse, Etelvina ([phone]) who is a retired nurse. Patient spouse did the primary reporting due to patient appearing in pain at the time of the assessment. Patient is active and independent at baseline. Drives but can drive home from hospital. 3 steps into the house and a walk in shower, but they're hopeful he won't need any type of assistance upon d/c. Patient and family appear open to HH if needed but they're thinking it won't be. Patient and spouse were unsure of what kind of resources they may need upon d/c due to them still trying to figure out what is going on with him medically. CM team will continue to follow. Plan: home with spouse in POV when medically stable. CM team will continue to follow closely for d/c needs that arise throughout patient stay here. GE Ang Discharge Planning/Care Management CM Discharge Assessment Start: 10/14/22 11:23 Freq: Status: Active Protocol: Document 10/14/22 11:23 (Rec: 10/14/22 11:31 [id number]) Discharge Planning Assessment Assigned Billet Grinder GE Garibay DPOA/Assigned Designee Name Etelvina Stallings () Contact Information [phone] Advance Directives? No History Provided By Patient,Significant Other, Medical Record Prior Living Arrangements House Household Members spouse Type of transporation used prior to Drives own vehicle admit Independent with ADL's Yes Is patient alert and oriented? Yes Barriers to Discharge No Discharge Plan Home Whiteboard Updated in Patient Room with Yes name and ext. # of Billet Grinder Review Status In Process Next Review Type Continued Stay Review
[2022-10-14] MEDS: HYDROMORPHONE 2 MG TABLET PO (11:56)
[2022-10-14 14:03] LABS: Add Manual Diff / Slide Review NO; Basophils Absolute Auto 0 /uL (0-100); Basophils Percent Auto 0.4 % (0-2); Eosinophils Absolute Auto 100 /uL (0-450); Eosinophils Percent Auto 0.5 % (2-4); Hematocrit 32.9 % (41-53); Lymphocytes Absolute Auto 1000 /uL (1100-4500); Lymphocytes Percent Auto 7.8 % (25-40); Mean Corpuscular HGB Conc 33.3 % (30-36); Mean Corpuscular Hemoglobin 27.4 PG (26-34); Mean Corpuscular Volume 82.4 fL (80-100); Monocytes Absolute Auto 700 /uL (0-900); Monocytes Percent Auto 5.6 % (3-14); Neutrophils Absolute Auto 11400 /uL (1500-7000); Neutrophils Percent Auto 85.7 % (50-75); Platelet Count 572 X10^3/uL (150-400); Red Cell Distribution Width 15.3 % (11.6-14.8); White Blood Cell Count 13.3 X10^3/uL (4.5-11.0)
[2022-10-14] MEDS: cefTRIAXone 2,000 MG in SODIUM CHLORIDE 0.9% 100 ML 200 MG IV (14:11)
[2022-10-14 14:18] LABS: Alanine Aminotransferase 21 IU/L (<50); Albumin 3.5 g/dL (3.5-5.0); Albumin Globulin Ratio 0.9 (1.0-2.8); Alkaline Phosphatase 151 U/L (38-126); Aspartate Aminotransferase 22 IU/L (17-59); BUN Creatinine Ratio 13.6 (6-22); Bilirubin Total 0.8 mg/dL (0.2-1.3); Blood Urea Nitrogen 8 mg/dL (9-20); Calcium 8.8 mg/dL (8.4-10.2); Carbon Dioxide 28 mmol/L (22-32); Chloride 95 mmol/L (98-107); Estimated Glomerular Filt Rate > 60 mL/min (>60); Globulin 3.8 g/dL (1.7-4.1); Glucose 131 mg/dL (80-110); HEMOLYSIS < 15 (0-50); Potassium 3.9 mmol/L (3.4-5.1); Sodium 131 mmol/L (137-145); Total Protein 7.3 g/dL (6.3-8.2)
[2022-10-14 14:32] LABS: Procalcitonin 0.45 ng/mL (<0.5)
--- NOTE | 2022-10-14 14:53 | PM.PN.1 ---
Subjective Subjective Interval history: Not feeling appreciably better. But not worse. No new complaints. Multi swallowing due to the amount of mucus at the back of the pharynx and not adequate nutrition taken orally. Discussed consulting speech language therapy and dietitian to access. Exam Vital Signs (past 8 hours): - 10/14/22 12:00 Temperature 99.8 F H Pulse Rate 82 Respiratory Rate 18 Blood Pressure 123/71 Pulse Oximetry 91 Oxygen Delivery Method Room Air Oxygen Flow Rate 0 Narrative Exam Narrative: GENERAL: patient appears stated age. Well-developed patient, in mild distress. HEAD: Atraumatic. Normocephalic. EYES: Pupils equal round and reactive. Extraocular motions intact. NECK: Trachea midline. Non tender CARDIOVASCULAR: Regular rate and rhythm without murmurs, gallops, or rubs. RESPIRATORY: shallow breathing, appears painful to breathe. Decreased sounds R base. GASTROINTESTINAL: Abdomen soft, non-tender, nondistended. EXTREMITIES: No edema or joint tenderness. NEURO: AOx3. SKIN: No rash or erythema of visible areas Objective Labs 10/14/22 13:40 10/14/22 13:40 Labs: Laboratory Results - last 24 hr 10/14/22 10/14/22 13:40 13:40 WBC 13.3 H RBC 4.00 L Hgb 11.0 L Hct 32.9 L MCV 82.4 MCH 27.4 MCHC 33.3 RDW 15.3 H Plt Count 572 H Neut % (Auto) 85.7 H Lymph % (Auto) 7.8 L [place] % (Auto) 5.6 Eos % (Auto) 0.5 L Baso % (Auto) 0.4 Neut # (Auto) 93417 H Lymph # (Auto) 1000 L [place] # (Auto) 700 Eos # (Auto) 100 Baso # (Auto) 0 Sodium 131 L Potassium 3.9 Chloride 95 L Carbon Dioxide 28 BUN 8 L Creatinine 0.59 L Estimated GFR > 60 BUN/Creatinine Ratio 13.6 Glucose 131 H Calcium 8.8 Total Bilirubin 0.8 AST 22 ALT 21 Alkaline Phosphatase 151 H Total Protein 7.3 Albumin 3.5 Globulin 3.8 Albumin/Globulin Ratio 0.9 L Procalcitonin 0.45 [facility] Medical History (Updated 10/13/22 @ 14:24 by Geovany Villafana DO) Atonic bladder Chicken pox Hearing loss (~1985) Hyperlipidemia Measles Medicare annual wellness visit, initial Memory change Sue Self-catheterizes urinary bladder Urethral stricture Vitamin D deficiency Surgical History (Updated 04/01/22 @ 21:22 by Kailyn Rosa) Anesthesia History of elbow surgery History of left hip replacement (~04/2007) History of right hip replacement (~01/2008) History of tonsillectomy (~1966) Urethral stricture Family History (Updated 04/01/22 @ 21:24 by Kailyn Rosa) Father History of heart disease Hyperlipidemia Grandfather Cancer Grandmother Stroke Grandmother Cancer Social History household members: spouse Smoking Status: Former smoker alcohol intake: former Assessment & Plan Assessment & Plan narrative: 1. Fever and chills. Acute, present on admission. Blood cultures obtained.? After 24 hours blood cultures remain negative. Procalcitonin remains normal yesterday and today. 2. Elevated white blood count.? Acute, present on admission. Concerning for infection.? Lung findings consistent with?possible neoplasm, abscess and less likely empyema. Consulted Interventional Radiology for drainage/biopsy of right lung finding. On treatment with ceftriaxone and metronidazole intravenously.? White blood count improving.? 3. Underlying urinary stricture.? Chronic and present on admission. Patient self caths.? Have supplies for the patient. 4. Hyperlipidemia. Chronic and present on admission.? Continue atorvastatin 40 mg daily. 5. GERD.? Chronic and present on admission. Continue famotidine 20 mg b.i.d. 6. Vitamin-D deficiency.? Chronic and present on admission. Continue replacement. 7. Chronic allergic rhinitis/sinusitis possibly.? Chronic and present on admission. Although patient says allergies have been ruled out, he does have chronic pharyngeal mucous. Continue patient's treatment with cetirizine and fluticasone.? Start Mucinex. 8. Difficulty swallowing and therefore difficulty with obtaining adequate nutrition. Chronic and present on admission. Consult speech language therapy to assess swallow and consult dietitian to assess nutrition intake and advisement for foods. 9. Low-grade fever. Acute present on admission. Continue to monitor. Follow labs and patient clinically. Code status:? Full code DVT prophylaxis:? Treat with heparin 5000 units subQ b.i.d. with the expectation procedure needs to be done any reversible anticoagulation. Surrogate decision maker:? Patient's , Etelvina Stallings Kj VTE Deep Vein Thrombosis/Pulmonary Embolism Present on Admission: No
[2022-10-14] MEDS: MELATONIN 3 MG TABLET PO (20:28)
[2022-10-14] MEDS: SENNOSIDES 8.6 MG TABLET 17.2 MG PO (20:29)
[2022-10-15 04:24] VITALS: BP 108/68; PULSE 78; RESP 18; TEMP 37.3; O2SAT 94
[2022-10-15 05:34] LABS: Alanine Aminotransferase 18 IU/L (<50); Albumin 3.1 g/dL (3.5-5.0); Albumin Globulin Ratio 0.9 (1.0-2.8); Alkaline Phosphatase 137 U/L (38-126); Aspartate Aminotransferase 21 IU/L (17-59); BUN Creatinine Ratio 12.7 (6-22); Bilirubin Total 0.6 mg/dL (0.2-1.3); Blood Urea Nitrogen 7 mg/dL (9-20); Calcium 8.2 mg/dL (8.4-10.2); Carbon Dioxide 26 mmol/L (22-32); Chloride 96 mmol/L (98-107); Estimated Glomerular Filt Rate > 60 mL/min (>60); Globulin 3.6 g/dL (1.7-4.1); Glucose 103 mg/dL (80-110); HEMOLYSIS < 15 (0-50); Potassium 3.8 mmol/L (3.4-5.1); Sodium 131 mmol/L (137-145); Total Protein 6.7 g/dL (6.3-8.2)
[2022-10-15 05:37] LABS: Add Manual Diff / Slide Review NO; Basophils Absolute Auto 0 /uL (0-100); Basophils Percent Auto 0.2 % (0-2); Eosinophils Absolute Auto 200 /uL (0-450); Hematocrit 28.4 % (41-53); Hemoglobin 9.4 g/dL (13.5-17.5); Lymphocytes Absolute Auto 900 /uL (1100-4500); Lymphocytes Percent Auto 8.3 % (25-40); Mean Corpuscular HGB Conc 33.2 % (30-36); Mean Corpuscular Hemoglobin 27.1 PG (26-34); Mean Corpuscular Volume 81.6 fL (80-100); Monocytes Absolute Auto 800 /uL (0-900); Monocytes Percent Auto 7.5 % (3-14); Neutrophils Absolute Auto 9000 /uL (1500-7000); Platelet Count 510 X10^3/uL (150-400); Red Blood Cell Count 3.49 X10^6/uL (4.5-5.9)
[2022-10-15] MEDS: metroNIDAZOLE 500 MG/100 ML PIGGYBACK 100 MG IV ×3 (06:28→21:57)
[2022-10-15 08:55] VITALS: O2SAT 96
[2022-10-15] MEDS: HEPARIN 5,000 UNIT/ML VIAL 5000 UNIT SUBCUT ×2 (09:39→21:06)
[2022-10-15] MEDS: CHOLECALCIFEROL (VITAMIN D3) 1,000 UNIT TABLET 1000 UNIT PO (09:39)
[2022-10-15] MEDS: FAMOTIDINE 20 MG TABLET PO ×2 (09:39→21:06)
[2022-10-15] MEDS: ATORVASTATIN 20 MG TABLET 40 MG PO (09:39)
[2022-10-15 12:00] VITALS: BP 118/66; PULSE 83; RESP 18; TEMP 36.9; O2SAT 95
[2022-10-15] MEDS: cefTRIAXone 2,000 MG in SODIUM CHLORIDE 0.9% 100 ML 200 MG IV (14:52)
--- NOTE | 2022-10-15 15:26 | PM.PN.1 ---
Subjective Subjective Interval history: 67 M admitted with RLL mass and likely post obstructive pneumonia. He is improving today on antibiotics, not on O2. Still with occasional pain with cough. CT guided biopsy unable to be performed before tomorrow. Exam Vital Signs (past 8 hours): - 10/15/22 08:55 10/15/22 12:00 Temperature 98.4 F Pulse Rate 83 Respiratory Rate 18 Blood Pressure 118/66 Pulse Oximetry 96 95 Oxygen Delivery Method Nasal Cannula Oxygen Flow Rate 1 0 Fraction of Inspired Oxygen 24 SaO2/FiO2 Ratio 383 Oxygen Delivery Method Nasal Cannula Oxygen Flow Rate 0 Narrative Exam Narrative: GENERAL: patient appears stated age. Well-developed patient, in mild distress. HEAD: Atraumatic. Normocephalic. EYES: Pupils equal round and reactive. Extraocular motions intact. NECK: Trachea midline. Non tender CARDIOVASCULAR: Regular rate and rhythm without murmurs, gallops, or rubs. RESPIRATORY: shallow breathing, appears painful to breathe. Decreased sounds R base. GASTROINTESTINAL: Abdomen soft, non-tender, nondistended. EXTREMITIES: No edema or joint tenderness. NEURO: AOx3. SKIN: No rash or erythema of visible areas Objective Labs 10/15/22 05:15 10/15/22 05:15 Labs: Laboratory Results - last 24 hr 10/15/22 10/15/22 05:15 05:15 WBC 11.0 RBC 3.49 L Hgb 9.4 L Hct 28.4 L MCV 81.6 MCH 27.1 MCHC 33.2 RDW 15.0 H Plt Count 510 H Neut % (Auto) 82.0 H Lymph % (Auto) 8.3 L [place] % (Auto) 7.5 Eos % (Auto) 2.0 Baso % (Auto) 0.2 Neut # (Auto) 9000 H Lymph # (Auto) 900 L [place] # (Auto) 800 Eos # (Auto) 200 Baso # (Auto) 0 Sodium 131 L Potassium 3.8 Chloride 96 L Carbon Dioxide 26 BUN 7 L Creatinine 0.55 L Estimated GFR > 60 BUN/Creatinine Ratio 12.7 Glucose 103 Calcium 8.2 L Total Bilirubin 0.6 AST 21 ALT 18 Alkaline Phosphatase 137 H C-Reactive Protein 31.0 H Total Protein 6.7 Albumin 3.1 L Globulin 3.6 Albumin/Globulin Ratio 0.9 L [facility] Medical History (Updated 07/30/23 @ 14:24 by Geovany Villafana DO) Atonic bladder Chicken pox Hearing loss (~1984) Hyperlipidemia Measles Medicare annual wellness visit, initial Memory change Mumps Self-catheterizes urinary bladder Urethral stricture Vitamin D deficiency Surgical History (Updated 04/01/22 @ 21:22 by Kailyn Rosa) Anesthesia History of elbow surgery History of left hip replacement (~04/2007) History of right hip replacement (~01/2008) History of tonsillectomy (~1966) Urethral stricture Family History (Updated 04/01/22 @ 21:24 by Kailyn Rosa) Father History of heart disease Hyperlipidemia Grandfather Cancer Grandmother Stroke Grandmother Cancer Social History household members: spouse Smoking Status: Former smoker alcohol intake: former Assessment & Plan Assessment & Plan narrative: 1. Right lung mass, with probable post obstructive pneumonia and R pleural effusion - - WBC now improved on antibiotic therapy, continue IV antibiotics until discharge. Favor 10-14 day course for either extensive pneumonia or post obstructive. - cough slowly improving - ordered IR biopsy via CT tomorrow, if fluid can be obtained will send for pleural studies including cytology. - no documented hypoxia but was on supplemental oxygen, now improved - pain control prn. 2. Underlying urinary stricture.? Chronic and present on admission. Patient self caths.? Have supplies for the patient. 3. Hyperlipidemia. Chronic and present on admission.? Continue atorvastatin 40 mg daily. 4. GERD.? Chronic and present on admission. Continue famotidine 20 mg b.i.d. 5. Vitamin-D deficiency.? Chronic and present on admission. Continue replacement. 6. Chronic allergic rhinitis/sinusitis possibly.? Chronic and present on admission. Although patient says allergies have been ruled out, he does have chronic pharyngeal mucous. Continue patient's treatment with cetirizine and fluticasone.?Increase mucinex to standing. 7. Decreased appetite - may be related to possible malignancy, mucous production in setting of pneumonia, unclear. - discussed with patient, will trial mucinex - dietary consultation ordered. Code status:? Full code DVT prophylaxis:? Treat with heparin 5000 units subQ b.i.d. with the expectation procedure needs to be done any reversible anticoagulation. Surrogate decision maker:? Patient's , Etelvina Stallings Dispo: Inpatient, possible discharge home tomorrow if continues to improve and depending on initial biopsy findings. Quality VTE Deep Vein Thrombosis/Pulmonary Embolism Present on Admission: No
--- NOTE | 2022-10-15 16:36 | ST.IPCSEOM ---
Visit Care Team Role Provider Type Peggy Sogn DO Primary Care Provider Physician Specialty: Family Practice Address: [address] [place] [address], [address], [place], [address] Email: [email or web address] Robyn Baker MD Other Providers Physician Specialty: Radiology Address: [address] [place] [address], [place], [address] Email: [email or web address] DO Emergency Provider Physician Referring Provider Specialty: Emergency Medicine Address: [address] [place] [address], [id number] Email: [email or web address] Marielle Baltazar MD Admit Provider Physician Attending Provider Specialty: [facility] Address: [address] [place] [address], [address] Phone: Fax: Email: [email or web address] Past Medical History (Last Updated 04/02/22 @ 09:57 by Peggy Song DO) Atonic bladder (Medical) Chicken pox (Medical) Hearing loss (Medical ~1984) Hyperlipidemia (Medical) Measles (Medical) Medicare annual wellness visit, initial (Medical) Memory change (Medical) Mumps (Medical) Self-catheterizes urinary bladder (Medical) Urethral stricture (Medical) Vitamin D deficiency (Medical) Speech-Language Pathology Swallow Evaluation NETWORK OPERATIONS SPECIALIST Clinical Swallow Evaluation Start: 10/15/22 15:16 Freq: Status: Active Protocol: Document 10/15/22 15:18 CG (Rec: 10/15/22 15:22 CG [id number]) Clinical Swallow Evaluation Session Time Visit Start Time 14:40 Visit Stop Time 15:15 Total Visit Minutes 35 Visit Information Visit Number 1 Referral Referring Provider Derrick Reason for Referral weight loss, concern for dysphagia (rule out) Setting Assessment Location Acute Care Visit Type Note Type Initial evaluation Patient Information Identification Type Name History Per H&P: Theron Stallings is a 67-year-old male former smoker with history of hyperlipidemia and chronic sinusitis presents with his in the chief complaint of right-sided chest and flank pain with fevers for the past few days.? He stated that he has sharp and stabbing pain that is worse with deep breath and with motion.? He stated that he feels short of breath but is certain that it is only because breathing hurts.? His fevers just started last night.? He denied any nausea or vomiting.? He denied any diarrhea but has had episodes of constipation.? He has been self cathing himself for quite some time secondary to a weak bladder that is thought to be related to urethral strictures secondary to a trauma at a young age.? He denied any history of cancer or blood clot, he denied recent travel, trauma or injury.? He stated it for some time he is had little taste for food and has lost weight as a consequence.? He has felt overall fatigued and generally unwell recently. Since admission, the pt had a chest CT which found Large right lower lobe neck chronic appearing mass lesion. The pt is to undergo a biopsy to determine if the mass is cancerous. The pt reported to the NETWORK OPERATIONS SPECIALIST that he does not feel appetized by foods that he normally enjoys, and that this has been going on since April. He states that sometimes he is able to begin eating food, but is quickly unappetized because his perception of taste changes. He also states that his sense of smell is hypersensitive. He denies any history of Covid . Pt states that the food goes down okay and does not feel like it is going down the wrong tube. He states that he was scoped by an ENT due to ongoing pharyngeal residue, but the ENT could not find anything on the scope to explain the residue. ENT recommended following reflux precautions in case irritation was caused by PM reflux. Pt states he has been following these precautions but they have not helped. Since admission and recent imaging, it appears that pt's secretions have likely been due to pneumonia/pleural effusion/mass in the right lower lobe. Subjective Observations Pt was laying flat in bed eating pudding and drinking water upon ST entry to room. When NETWORK OPERATIONS SPECIALIST explained her role, pt stated It's not a swallowing issue but was agreeable to further pt interview. Reported by Patient/Caregiver Pain/Discomfort Yes Location Chest Other Symptoms Coughing,Weight loss Comment Pt states he has aversions to most foods, which has caused weight loss. He frequently coughs up secretions. Pt's was present in the room for the evaluation. She is concerned that if the lung mass is cancerous, the pt's appetite will only further decrease from cancer treatment . Current Diet Regular (IDDSI 7) Baseline Feeding Method Independent in self-feeding The IDDSI Framework Protocol: IDDSI.1 Objective Assessment Mental Status Alert,Responsive,Cooperative Oral Integrity WFL Dentition Within normal limits Lip Function Within normal limits Pucker Within normal limits Tongue Function Within normal limits Jaw Function Within normal limits Respiratory Sufficiency Within normal limits Comment Pt's oral motor structure and function appear WFL for speech and swallowing. Food and Liquid Trials Position During Assessment In bed Liquids Trialed Thin (IDDSI 0) Solid Trials Purred (IDDSI 4) Administration Type Tea spoon,Cup consecutive sips Oral Impairment Within normal limits Pharyngeal Impairment Within functional limits Pharyngeal Phase Comments Mild throat cleariung observed after serial swallows of thin liquids; however, the pt was lying flat on his back (he was drinking in this position before NETWORK OPERATIONS SPECIALIST entered the room) and has pharyngeal mucus at baseline due to ongoing pulmonary issues. Therefore, this is unlikely to be indicative of dysphagia given pt's overall clinical presentation. The IDDSI Framework Protocol: IDDSI.1 Findings Swallowing Function Comments No overt s/sx dysphagia; weight loss apparently due to appetite Severity of Swallow Impairment Within functional limits Prognosis Guarded Based on Other (comment) Comment Pt with R lower lobe mass concerning for cancer. Recommendations Instrumental Assessment No Swallowing Treatment No Recommended Solids Regular (IDDSI 7) Recommended Liquids Thin (IDDSI 0) Other Recommendations NETWORK OPERATIONS SPECIALIST recommends: 1. Consult to entry level manager regarding nutrition, alternative means of nutrition , etc due to food aversion. 2. Consider pharmaceutical intervention to increase appetite. 3. Continue to monitor for changes in swallowing and re- refer to ST if needed. Medication Recommendations As Tolerated Discharge Recommendations Other (comment) Comments As medically indicated based on dx and prognosis Referrals Recommended Referrals Dietary Education Patient/Caregiver Education Described results of evaluation,Patient expressed understanding of evaluation, Patient expressed understanding of evaluation but refused treatment
[2022-10-15 18:00] VITALS: BP 111/78; PULSE 78; RESP 14; TEMP 36.9; O2SAT 95
[2022-10-15 19:00] VITALS: O2SAT 94
[2022-10-15 19:35] VITALS: BP 119/80; PULSE 79; RESP 18; TEMP 37.5; O2SAT 94
[2022-10-15] MEDS: SENNOSIDES 8.6 MG TABLET 17.2 MG PO (21:05)
[2022-10-15] MEDS: MELATONIN 3 MG TABLET PO (21:06)
[2022-10-15] MEDS: guaiFENesin ER 600 MG TAB PO (21:06)
[2022-10-16] VITALS (8 sets, daily range): BP systolic 107–128; BP diastolic 53–83; PULSE 65–78; RESP 16–22; TEMP 36.7–37.5; O2SAT 93–100
[2022-10-16 05:36] LABS: Add Manual Diff / Slide Review NO; Basophils Absolute Auto 0 /uL (0-100); Basophils Percent Auto 0.3 % (0-2); Eosinophils Absolute Auto 200 /uL (0-450); Eosinophils Percent Auto 1.9 % (2-4); Hematocrit 29.4 % (41-53); Hemoglobin 9.9 g/dL (13.5-17.5); Lymphocytes Absolute Auto 900 /uL (1100-4500); Lymphocytes Percent Auto 8.9 % (25-40); Mean Corpuscular HGB Conc 33.8 % (30-36); Mean Corpuscular Hemoglobin 27.5 PG (26-34); Mean Corpuscular Volume 81.2 fL (80-100); Monocytes Absolute Auto 600 /uL (0-900); Monocytes Percent Auto 5.8 % (3-14); Neutrophils Absolute Auto 8300 /uL (1500-7000); Neutrophils Percent Auto 83.1 % (50-75); Platelet Count 567 X10^3/uL (150-400); Red Blood Cell Count 3.62 X10^6/uL (4.5-5.9); Red Cell Distribution Width 15.1 % (11.6-14.8); White Blood Cell Count 9.9 X10^3/uL (4.5-11.0)
[2022-10-16 05:47] LABS: Alanine Aminotransferase 18 IU/L (<50); Albumin Globulin Ratio 0.8 (1.0-2.8); Alkaline Phosphatase 138 U/L (38-126); Aspartate Aminotransferase 22 IU/L (17-59); Bilirubin Total 0.5 mg/dL (0.2-1.3); Blood Urea Nitrogen 6 mg/dL (9-20); Calcium 8.3 mg/dL (8.4-10.2); Carbon Dioxide 27 mmol/L (22-32); Chloride 97 mmol/L (98-107); Estimated Glomerular Filt Rate > 60 mL/min (>60); Globulin 3.6 g/dL (1.7-4.1); Glucose 110 mg/dL (80-110); HEMOLYSIS < 15 (0-50); Potassium 3.5 mmol/L (3.4-5.1); Sodium 131 mmol/L (137-145); Total Protein 6.6 g/dL (6.3-8.2)
--- NOTE | 2022-10-16 08:00 | DI.CT.S_ITS ---
PROCEDURE: CT BIOPSY LUNG RT Sedation analgesia for 30 minutes. INDICATIONS: Right lung mass and pleural effusion. TECHNIQUE: The indications, alternatives, benefits, risks, and possible complications of the procedure were communicated to the patient. Informed written consent from the patient was obtained and placed in the chart. Continuous EKG and hemodynamic monitoring was started by trained personnel. The patient was brought to the CT suite and paperhanger contractor spiral CT imaging was performed with localization grid. The appropriate site for percutaneous access to the biopsy target was marked, was prepped and draped sterilely, and was infused with local anaesthesia. Under CT guidance, an 18G Chiba needle was advanced to the biopsy target, and aspirated yielding 13 mL of purulent fluid. The needle was then removed, and the patient was sent for post-procedure monitoring. COMPARISON: [facility], CT, CT ABDOMEN PELVIS W CON, 10/13/2022, 11:09. [facility], CT, CT ANGIO CHEST PE PROTOCOL, 10/13/2022, 11:09. FINDINGS: Aspiration site: Right lower lobe abscess Needle: 18 gauge Chiba needle. Fluid aspirated: 13 mL of brianna pus Medications: 1% lidocaine for local anaesthesia. IV Versed for conscious sedation for 30 minutes (see nursing record). Complications: None. IMPRESSION: Successful CT-guided aspiration of a right lower lobe pulmonary abscess. Approved by: Memo Brown M.D. on 10/16/2022 at 10:01
[2022-10-16] MEDS: MIDAZOLAM 2 MG/2 ML VIAL 1 MG IV (08:47)
[2022-10-16] MEDS: metroNIDAZOLE 500 MG/100 ML PIGGYBACK 100 MG IV (08:58)
--- NOTE | 2022-10-16 09:03 | PATH_ITS ---
Note [facility] Accession Number: [id number] TESTS RESULT FLAG UNITS REF RANGE LAB Clinician Provided Cytology Information No. of containers..01 Other (Miscellaneous) Source: PLEURAL FLUID DIAGNOSIS: PLEURAL FLUID, ASPIRATION. NEGATIVE FOR MALIGNANT CELLS. REACTIVE MESOTHELIAL CELLS IN A BACKGROUND OF MARKED ACUTE INFLAMMATION. THIS INTERPRETATION INCLUDES EVALUATION OF A CELL BLOCK. Pathologist ICD10: 01 R89.9 Signed out by: Van Vega MD, Pathologist NPI- [id number] Performed by: Kennedy Rogers, Field Scout ([facility]) Gross description: 01 3 CC, PINK, CLOUDY RECEIVED: FRESH IN 20 ML SYRINGE.VO /VDU 10/17/2022 0540 Local FLAG LEGEND: L-Low Normal,H-High Normal,LL-Alert Low,HH-Alert High <-Panic Low,>-Panic High,A-Abnormal,AA-Critical Abnormal Performed at: 01 =Z [facility] [address], [place] [address] Roly Espinosa MD, Performed at: 01 [facility] [address], [place], [place] [id number] MD Roly Espinosa MD Phone: [phone]
[2022-10-16] MEDS: HEPARIN 5,000 UNIT/ML VIAL 5000 UNIT SUBCUT (09:11)
[2022-10-16] MEDS: ATORVASTATIN 20 MG TABLET 40 MG PO (09:11)
[2022-10-16] MEDS: FAMOTIDINE 20 MG TABLET PO (09:11)
[2022-10-16] MEDS: guaiFENesin ER 600 MG TAB PO (09:14)
[2022-10-16] MEDS: CHOLECALCIFEROL (VITAMIN D3) 1,000 UNIT TABLET 1000 UNIT PO (09:14)
[2022-10-16] MEDS: POTASSIUM CHLORIDE 20 MEQ TAB 40 MEQ PO (09:24)
--- NOTE | 2022-10-16 09:44 | DI.RAD.S_ITS ---
PROCEDURE: XR CHEST 1V INDICATIONS: POST CHEST ASPIRATION TECHNIQUE: One view of the chest was acquired. COMPARISON: [facility], CT, CT BIOPSY LUNG RT, 10/16/2022, 7:54. [facility], CT, CT ANGIO CHEST PE PROTOCOL, 10/13/2022, 11:09. [facility], CR, XR CHEST 1V, 10/13/2022, 10:51. FINDINGS: Surgical changes and devices: None. Lungs and pleura: No pneumothorax. Known extensive process in the right mid and lower lung field, status post aspiration. Potentially less fluid present in the right lung base. Mediastinum: Mediastinal contours appear normal. Heart size is normal. Bones and chest wall: No suspicious bony lesions. Overlying soft tissues appear unremarkable. IMPRESSION: No evidence of pneumothorax post CT-guided right chest aspiration. Dictated by: Walt Jimenez M.D. on 10/16/2022 at 10:23 Approved by: Walt Jimenez M.D. on 10/16/2022 at 10:26
--- NOTE | 2022-10-16 10:48 | P.DS_ITS ---
History of Present Illness History of Present Illness Date Patient Seen: 10/16/22 Time Patient Seen: 10:49 Chief complaint: rib pain, diff breathing Narrative: Per admitting provider, Theron Stallings is a 67-year-old male former smoker with history of hyperlipidemia and chronic sinusitis presents with his in the chief complaint of right-sided chest and flank pain with fevers for the past few days.? He stated that he has sharp and stabbing pain that is worse with deep breath and with motion.? He stated that he feels short of breath but is certain that it is only because breathing hurts.? His fevers just started last night.? He denied any nausea or vomiting.? He denied any diarrhea but has had episodes of constipation.? He has been self cathing himself for quite some time secondary to a weak bladder that is thought to be related to urethral strictures secondary to a trauma at a young age.? He denied any history of cancer or blood clot, he denied recent travel, trauma or injury.? He stated it for some time he is had little taste for food and has lost weight as a consequence.? He has felt overall fatigued and generally unwell recently. Discharge Providers Provider Date of admission: 10/13/22 14:16 Discharge Date: 10/16/22 Primary care physician: Peggy Song DO Consults: 10/14/22 09:13 Consult to Interventional Radiology Routine Comment: Any IR radiologist is fine Consulting Provider: Robyn Baker Reason For Exam: IR right lung abscess drainage/mass biopsy needed 10/14/22 14:51 Consult to Dietitian, Adult Routine Comment: Reason For Exam: Difficulty eating adequate calories and nutrition Consult to Speech Therapy Evaluate & Treat Comment: Excessive mucus back of pharynx, diffic swallow Physician Instructions: Evaluate and treat Discharge provider: Castro Meza DO Summary Hospital Course Discharge Diagnosis: 1. Right lung abscess with parapneumonic effusion, cannot rule out malignancy 2. Underlying urinary stricture.? Chronic and present on admission.? 3. Hyperlipidemia.? 4. GERD. 5. Vitamin-D deficiency.? 6. Chronic allergic rhinitis/sinusitis possibly.? Chronic and present on ad mission.? 7. Mild hyponatremia 8. Acute anemia, unclear etiology, stable. Hospital Course: This is a 67 year old male with PMH of urinary stricture, HLD, GERD who presented fever and right sided chest pain. On CT imaging, he was noted to have a right lower lobe chest wall mass with centralized fluid. It was unclear if this was due to abscess or malignancy with post obstructive pneumonia initially. He continued to improve with ceftriaxone and flagyl with improving symptoms and improving leukocytosis. He underwent CT guided biopsy, but with procedure 15 cc of purulent material was removed, consisted with possible empyema. Post procedure chest xray showed no pneumothroax and possibly a small decrease in R lung effusion. Ctyology was ordered but not sent, pleural fluid analysis is pending at the time of discharge as is abscess culture though this does show 4+ GPC. Given patient's improvement, improving symptoms, and no respiratory failure I discussed waiting for culture results here in the hospital or discharge home. Patient elected for discharge home. He was discharged with cefdinir and flagyl for now given his improvement on this therapy here, though can likely narrow once culture results finalize. I do recommend repeat chest CT at some point in the near future to re-evaluate for possible underlying malignancy after antibiotic therapy is completed, and possibly another chest xray at completion of antibiotic therapy. I recommend at least a 2 week antibiotic course for now, possibly longer depending on repeat imaging and symptoms at the time of completion. Time Spent with Patient Time spent: Greater than 30 minutes Exam Vital Signs (past 8 hours): - 10/16/22 05:08 10/16/22 07:45 10/16/22 07:45 Temperature 98.2 F Pulse Rate 76 Respiratory Rate 18 Blood Pressure 125/77 Pulse Oximetry 94 93 Oxygen Delivery Method Room Air Room Air Oxygen Flow Rate 0 0 10/16/22 08:28 10/16/22 08:33 10/16/22 08:39 Temperature Pulse Rate 68 73 78 Respiratory Rate 18 22 20 Blood Pressure 115/64 107/64 110/53 L Pulse Oximetry 98 100 98 Oxygen Delivery Method Nasal Cannula Nasal Cannula Nasal Cannula Oxygen Flow Rate 3 3 3 10/16/22 10:40 Temperature 98.8 F Pulse Rate 65 Respiratory Rate 16 Blood Pressure 122/83 Pulse Oximetry 95 Oxygen Delivery Method Oxygen Flow Rate Fraction of Inspired Oxygen 24 SaO2/FiO2 Ratio 383 Oxygen Delivery Method Nasal Cannula Oxygen Flow Rate 3 Narrative Exam Narrative: GENERAL: patient appears stated age. Well-developed patient, in mild distress. HEAD: Atraumatic. Normocephalic. EYES: Pupils equal round and reactive. Extraocular motions intact. NECK: Trachea midline. Non tender CARDIOVASCULAR: Regular rate and rhythm without murmurs, gallops, or rubs. RESPIRATORY: shallow breathing, appears painful to breathe. Decreased sounds R base. GASTROINTESTINAL: Abdomen soft, non-tender, nondistended. EXTREMITIES: No edema or joint tenderness. NEURO: AOx3. SKIN: No rash or erythema of visible areas Objective Labs 10/16/22 05:09 10/16/22 05:09 Labs: Laboratory Results - last 24 hr 10/16/22 10/16/22 10/16/22 05:09 05:09 09:03 WBC 9.9 RBC 3.62 L Hgb 9.9 L Hct 29.4 L MCV 81.2 MCH 27.5 MCHC 33.8 RDW 15.1 H Plt Count 567 H Neut % (Auto) 83.1 H Lymph % (Auto) 8.9 L [place] % (Auto) 5.8 Eos % (Auto) 1.9 L Baso % (Auto) 0.3 Neut # (Auto) 8300 H Lymph # (Auto) 900 L [place] # (Auto) 600 Eos # (Auto) 200 Baso # (Auto) 0 Sodium 131 L Potassium 3.5 Chloride 97 L Carbon Dioxide 27 BUN 6 L Creatinine 0.50 L Estimated GFR > 60 BUN/Creatinine Ratio 12.0 Glucose 110 Calcium 8.3 L Magnesium 2.0 Total Bilirubin 0.5 AST 22 ALT 18 Alkaline Phosphatase 138 H Total Protein 6.6 Albumin 3.0 L Globulin 3.6 Albumin/Globulin Ratio 0.8 L Fluid Color Cancelled Fluid Appearance Cancelled Fluid RBC Cancelled Fld Tot Nucleated Cell Cancelled Fluid Polynuclear WBCs Cancelled Fluid Mononuclear WBCs Cancelled Fluid Eosinophils Cancelled Fluid Other Cells Cancelled Body Fluid [facility] History (Updated 10/13/22 @ 14:24 by Geovany Villafana DO) Atonic bladder Chicken pox Hearing loss (~1984) Hyperlipidemia Measles Medicare annual wellness visit, initial Memory change Mumps Self-catheterizes urinary bladder Urethral stricture Vitamin D deficiency Surgical History (Updated 04/01/22 @ 21:22 by Kailyn Rosa) Anesthesia History of elbow surgery History of left hip replacement (~04/2007) History of right hip replacement (~01/2008) History of tonsillectomy (~1966) Urethral stricture Family History (Updated 04/01/22 @ 21:24 by Kailyn Rosa) Father History of heart disease Hyperlipidemia Grandfather Cancer Grandmother Stroke Grandmother Cancer Social History household members: spouse Smoking Status: Former smoker alcohol intake: former Discharge Plan Discharge Plan Patient Disposition: Home Provider Discharge Comment: You were admitted to the hospital with a lung abscess. Improved with antibiotic therapies, and you had drainage of an abscess. Cultures are still pending but with improvement you elected to discharge home for continued antibiotic therapies. Discharge orders & Medications Prescriptions: New guaifenesin 400 mg tablet 400 mg PO QID PRN (Reason: congestion) 30 Days Qty: 60 0RF cefdinir 300 mg capsule 300 mg PO BID 14 Days Qty: 28 0RF metronidazole 500 mg tablet 500 mg PO TID 14 Days Qty: 42 0RF Continued triamcinolone acetonide 0.1 % ointment 1 applic topical BEDTIME PRN (Reason: Skin Irritation) cholecalciferol (vitamin D3) 25 mcg (1,000 unit) capsule 25 mcg PO DAILY famotidine 20 mg tablet 20 mg PO BID Patient Comments: 2nd dose is at 1530 atorvastatin 40 mg tablet 40 mg PO DAILY Qty: 90 3RF fluticasone propionate [Flonase Allergy Relief] 50 mcg/actuation spray,suspension 2 spray intranasal DAILY PRN (Reason: nasal congestion) Qty: 16 11RF Rx Instructions: administer into each nostril Follow up/Referrals: Peggy Song DO [Primary Care Provider] - (Right lung abscess, possible mass. Repeat CT imaging recommended to evaluate for possible underlying mass ) Diet/Activity/Treatments Diet: Diet as Tolerated and Regular Activity: As tolerated, no restrictions Skin/Wound/Dressing Care Report to your healthcare provider any signs of infection, such as:: chills, fever and increased pain Visit Report/Discharge Packet Instructions: DI for Pneumonia -- Adult, DI for Empyema Stand Alone Forms: Patient Portal/API, Stroke Signs & Symptoms Discharge Data Primary Care Provider: Peggy Song Discharges patient from system. Discharge Date/Time: 10/16/22 14:22 Quality VTE Deep Vein Thrombosis/Pulmonary Embolism Present on Admission: No
--- NOTE | 2022-10-16 11:44 | CM.DPC ---
DCP Continued: NIPPLE THREADER reviewed EMR. Per provider in rounds, patient may d/c today following getting his mass in his lung drained. NIPPLE THREADER entered room and reintroduced self and role. Patient was resting in bed and reported he will be d/c today. Patient reported he is working on getting OP appointments set up. is getting antibiotic from pharmacy. Plan: patient will d/c home today with spouse in POV. Patient will seek follow up from OP providers. CM team will continue to follow as needed. GE Ang
[2022-10-16] MEDS: cefTRIAXone 2,000 MG in SODIUM CHLORIDE 0.9% 100 ML 200 MG IV (13:05)
[2022-10-16] MEDS: metroNIDAZOLE 500 MG TABLET PO (14:18)
== END 2022-10-16 14:22 | disposition home or self-care (01) | DRG 178 ==
LOC: ED 10:03 → AC 14:17
PROVIDERS: Internal Medicine; Admitting Provider Neuromusculoskeletal Medicine, Sports Medicine; Emergency Provider Emergency Medicine; PCP Family Medicine; Referring Provider Emergency Medicine; Visit Provider Neuromusculoskeletal Medicine, Sports Medicine
DX: J85.2 Abscess of lung without pneumonia (principal); E87.1 Hypo-osmolality and hyponatremia; J90 Pleural effusion, not elsewhere classified; E78.5 Hyperlipidemia, unspecified; K21.9 Gastro-esophageal reflux disease without esophagitis; N35.919 Unspecified urethral stricture, male, unspecified site; J30.9 Allergic rhinitis, unspecified; E55.9 Vitamin D deficiency, unspecified; Z87.891 Personal history of nicotine dependence
CPT/HCPCS: 32408; 36415; 71045; 71275; 74177; 80053; 81003; 81015; 82550; 83605; 83690; 83735; 83880; 84145; 84484; 85025; 85379; 85610; 85730; 86140; 87040; 87070; 87075; 87077; 87205; 92610; 93005; 93010; 94760; 96365; 96367; 96368; 99285; A9270; J0696; J1170; J1644; J2250; J2405; Q9967

== ENCOUNTER → 2022-10-25 14:00 | Outpatient (CLI) | payer MEDICARE, OTHER, SELFPAY ==
[2022-10-13 14:20] VITALS: BMI 24.0
[2022-10-25 15:22] LABS: Add Manual Diff / Slide Review NO; Basophils Absolute Auto 0 /uL (0-100); Basophils Percent Auto 0.4 % (0-2); Eosinophils Absolute Auto 100 /uL (0-450); Eosinophils Percent Auto 0.9 % (2-4); Hematocrit 34.1 % (41-53); Hemoglobin 11.2 g/dL (13.5-17.5); Lymphocytes Absolute Auto 1300 /uL (1100-4500); Lymphocytes Percent Auto 16.1 % (25-40); Mean Corpuscular HGB Conc 32.9 % (30-36); Mean Corpuscular Hemoglobin 27.3 PG (26-34); Mean Corpuscular Volume 82.9 fL (80-100); Monocytes Absolute Auto 500 /uL (0-900); Monocytes Percent Auto 6.4 % (3-14); Neutrophils Absolute Auto 6100 /uL (1500-7000); Neutrophils Percent Auto 76.2 % (50-75); Platelet Count 854 X10^3/uL (150-400); Red Blood Cell Count 4.11 X10^6/uL (4.5-5.9); Red Cell Distribution Width 15.9 % (11.6-14.8)
[2022-10-25 16:00] LABS: Anisocytosis 1+; Platelet Estimate Increased on smear
[2022-10-25 16:03] LABS: Erythrocyte Sedimentation Rate 78 MM/HR (0-15)
[2022-10-25 16:12] LABS: INR 1.3 (0.9-1.3); Prothrombin Time 14.6 SECONDS (10.1-12.7)
[2022-10-25 16:35] LABS: Alanine Aminotransferase 18 IU/L (<50); Albumin 3.8 g/dL (3.5-5.0); Alkaline Phosphatase 139 U/L (38-126); Aspartate Aminotransferase 23 IU/L (17-59); BUN Creatinine Ratio 13.6 (6-22); Bilirubin Total 0.4 mg/dL (0.2-1.3); Blood Urea Nitrogen 9 mg/dL (9-20); C-Reactive Protein Quant 2.7 mg/dL (<1.0); Calcium 9.2 mg/dL (8.4-10.2); Carbon Dioxide 28 mmol/L (22-32); Chloride 95 mmol/L (98-107); Estimated Glomerular Filt Rate > 60 mL/min (>60); Globulin 3.7 g/dL (1.7-4.1); Glucose 107 mg/dL (80-110); HEMOLYSIS < 15 (0-50); Potassium 5.1 mmol/L (3.4-5.1); Sodium 134 mmol/L (137-145); Total Protein 7.5 g/dL (6.3-8.2)
[2022-10-26 19:23] LABS: Ionized Calcium 4.9 mg/dL (4.5-5.6)
== END ==
PROVIDERS: PCP Family Medicine; Referring Provider Pediatrics; Visit Provider Pediatrics
DX: D64.9 Anemia, unspecified (principal); E87.1 Hypo-osmolality and hyponatremia
CPT/HCPCS: 36415; 80053; 82330; 85025; 85610; 85651; 86140

== ENCOUNTER → 2022-11-01 07:58 | Outpatient (CLI) | payer MEDICARE, OTHER, SELFPAY ==
[2022-10-13 14:20] VITALS: BMI 24.0
[2022-10-25 16:11] VITALS: BMI 24.0
--- NOTE | 2022-11-01 08:00 | DI.CT.S_ITS ---
PROCEDURE: CT CHEST WO CON INDICATIONS: check if infection has cleared eval of mass seen prev TECHNIQUE: Noncontrast 5 mm thick sections acquired from the pulmonary apices to the posterior costophrenic angles. 1 mm lung window, 5 mm thick coronal and sagittal and 7 mm axial MIP reformats were then acquired. For radiation dose reduction, the following was used: automated exposure control, adjustment of mA and/or kV according to patient size. COMPARISON: [facility], CT, CT ANGIO CHEST PE PROTOCOL, 10/13/2022, 11:09. [facility], CT, CT GUIDED FNA, 10/16/2022, 7:54. FINDINGS: Image quality: Excellent. Lungs and pleura: Significant interval improvement in a previously large masslike area necrosis and minimal associated air which on the previous study measured approximately 6.5 x 5.4 cm on prior image 94/4. This area is retracted, with spiculations consistent with scarring post infection. There is minimal residual density with a small amount of air present within it consistent with minimal residual empyema. On current image 46/2 this area measures approximately 2.6 x 2.6 cm. Central and peripheral airways are patent and normal in caliber. Mediastinum: Heart size is normal. No pericardial effusion. No mediastinal adenopathy by size criteria. Thoracic aorta and central pulmonary arteries are normal in size. Esophagus is normal in caliber. No hiatal hernia. Bones and chest wall: No suspicious bony lesions. No vertebral body compression fractures. No axillary or supraclavicular adenopathy by size criteria. Thyroid gland is unremarkable . Abdomen: Visualized upper abdominal solid organs and bowel loops appear normal in the absence of contrast. IMPRESSION: Virtual complete resolution of previous pulmonary abscess/empyema. There is extensive residual scarring. There is a small residual pleural collection fluid plus air in the pleural space along the junction between the lateral pleura and the major fissure. Comment: Consider follow-up CT in 2-3 months to document further resolution. Dictated by: Walt Jimenez M.D. on 11/01/2022 at 11:24 Approved by: Walt Jimenez M.D. on 11/01/2022 at 11:35
--- NOTE | 2022-11-01 08:00 | DI.RAD.S_ITS ---
PROCEDURE: XR CHEST 2V INDICATIONS: check if infection has cleared eval of mass seen prev TECHNIQUE: 2 views of the chest were acquired. COMPARISON: [facility], CT, CT CHEST WO CON, 11/01/2022, 8:14. [facility], CR, XR CHEST 1V, 10/16/2022, 9:36. [facility], CR, XR CHEST 1V, 10/13/2022, 10:51. FINDINGS: Surgical changes and devices: None. Lungs and pleura: Small right pleural effusion appears decreased. No pneumothorax. Right mid to lower lung opacity is redemonstrated, better evaluated on CT of the chest. Mediastinum: Mediastinal contours are normal. Heart size is normal. Bones and chest wall: No suspicious bony abnormalities. Soft tissues appear unremarkable. IMPRESSION: Right mid and lower lung opacity is redemonstrated, better evaluated on CT of the chest. Small right pleural effusion appears decreased compared to prior. Dictated by: Igor Valdovinos M.D. on 11/01/2022 at 9:04 Approved by: Igor Valdovinos M.D. on 11/01/2022 at 9:08
== END ==
PROVIDERS: PCP Family Medicine; Referring Provider Family Medicine; Visit Provider Family Medicine
DX: J90 Pleural effusion, not elsewhere classified (principal); R91.8 Other nonspecific abnormal finding of lung field
CPT/HCPCS: 71046; 71250

== ENCOUNTER → 2022-12-20 13:31 | Outpatient (CLI) | payer MEDICARE, OTHER, SELFPAY ==
[2022-10-25 16:11] VITALS: BMI 24.0
--- NOTE | 2022-12-20 13:32 | DI.CT.S_ITS ---
PROCEDURE: CT CHEST WO CON INDICATIONS: f/u on abscess, chest infection TECHNIQUE: Noncontrast 5 mm thick sections acquired from the pulmonary apices to the posterior costophrenic angles. 1 mm lung window, 5 mm thick coronal and sagittal and 7 mm axial MIP reformats were then acquired. For radiation dose reduction, the following was used: automated exposure control, adjustment of mA and/or kV according to patient size. COMPARISON: [facility], CT, CT ANGIO CHEST PE PROTOCOL, 10/13/2022, 11:09. [facility], CT, CT CHEST WO CON, 11/01/2022, 8:14. FINDINGS: Lungs and pleura: Right lung scarring in the region of the prior pulmonary abscess. Minimal right pleural thickening and or effusion. No residual drainable collection identified. Mediastinum: No pericardial effusion. . Thoracic aorta and central pulmonary arteries are normal in size. Esophagus is normal in caliber. Bones and chest wall: Multilevel degenerative change of the visualized spine. No axillary or supraclavicular adenopathy by size criteria. Abdomen: Visualized upper abdominal solid organs and bowel loops appear unremarkable in the absence of contrast. IMPRESSION: Right lung scarring in the region of the prior pulmonary abscess. No residual drainable collection identified. Dictated by: Memo Sung M.D. on 12/20/2022 at 15:08 Approved by: Memo Sung M.D. on 12/20/2022 at 15:17
== END ==
PROVIDERS: PCP Family Medicine; Referring Provider Internal Medicine Infectious Disease; Visit Provider Internal Medicine Infectious Disease
DX: J86.9 Pyothorax without fistula (principal); R91.8 Other nonspecific abnormal finding of lung field; J98.4 Other disorders of lung
CPT/HCPCS: 71250

== ENCOUNTER → 2023-03-27 07:08 | Outpatient (CLI) | payer MEDICARE, OTHER, SELFPAY ==
[2022-10-25 16:11] VITALS: BMI 24.0
[2023-03-27 08:28] LABS: Add Manual Diff / Slide Review NO; Basophils Absolute Auto 0 /uL (0-100); Basophils Percent Auto 0.6 % (0-2); Eosinophils Absolute Auto 200 /uL (0-450); Eosinophils Percent Auto 3.6 % (2-4); Hematocrit 40.1 % (41-53); Hemoglobin 13.8 g/dL (13.5-17.5); Lymphocytes Absolute Auto 1400 /uL (1100-4500); Lymphocytes Percent Auto 27.2 % (25-40); Mean Corpuscular HGB Conc 34.3 % (30-36); Mean Corpuscular Hemoglobin 31.8 PG (26-34); Mean Corpuscular Volume 92.7 fL (80-100); Monocytes Absolute Auto 400 /uL (0-900); Monocytes Percent Auto 8.4 % (3-14); Neutrophils Absolute Auto 3100 /uL (1500-7000); Neutrophils Percent Auto 60.2 % (50-75); Platelet Count 267 X10^3/uL (150-400); Red Blood Cell Count 4.32 X10^6/uL (4.5-5.9); Red Cell Distribution Width 13.7 % (11.6-14.8); White Blood Cell Count 5.1 X10^3/uL (4.5-11.0)
[2023-03-27 10:38] LABS: Hemoglobin A1C% w Est Avg Glu 5.9 % (4.0-6.0)
[2023-03-27 11:13] LABS: HEMOLYSIS < 15 (0-50)
[2023-03-27 11:38] LABS: Alanine Aminotransferase 24 IU/L (<50); Albumin 4.4 g/dL (3.5-5.0); Albumin Globulin Ratio 1.4 (1.0-2.8); Alkaline Phosphatase 65 U/L (38-126); Aspartate Aminotransferase 29 IU/L (17-59); BUN Creatinine Ratio 15.5 (6-22); Bilirubin Total 1.7 mg/dL (0.2-1.3); Blood Urea Nitrogen 11 mg/dL (9-20); Calcium 9.4 mg/dL (8.4-10.2); Carbon Dioxide 28 mmol/L (22-32); Chloride 96 mmol/L (98-107); Cholesterol 147 mg/dL (140-199); Estimated Glomerular Filt Rate > 60 mL/min (>60); Globulin 3.2 g/dL (1.7-4.1); Glucose 101 mg/dL (80-110); HDL Cholesterol 53 mg/dL (40-60); LDL Cholesterol Calculated 84 mg/dL (<100); Potassium 4.4 mmol/L (3.4-5.1); Sodium 133 mmol/L (137-145); Total Protein 7.6 g/dL (6.3-8.2); Triglycerides 50 mg/dL (35-150)
[2023-03-27 11:47] LABS: HIV 1 & 2 Ab/Ag 4th Gen Combo NEGATIVE (NEGATIVE); Hep C Virus Ab w/Reflex Quant NEGATIVE s/c (NEGATIVE)
[2023-03-27 11:50] LABS: Prostate Specific Antigen Scrn 1.38 ng/mL (0.1-4.0)
== END ==
PROVIDERS: PCP Family Medicine; Referring Provider Family Medicine; Visit Provider Family Medicine
DX: Z00.00 Encounter for general adult medical examination without abnormal findings (principal); E78.5 Hyperlipidemia, unspecified; R73.01 Impaired fasting glucose; Z12.5 Encounter for screening for malignant neoplasm of prostate; D64.9 Anemia, unspecified
CPT/HCPCS: 36415; 80053; 80061; 83036; 85025; 86803; 87389; G0103

== ENCOUNTER → 2023-05-20 10:11 | Outpatient (CLI) | payer MEDICARE, OTHER, SELFPAY ==
[2022-10-25 16:11] VITALS: BMI 24.0
[2023-05-21 08:55] LABS: Fecal Immunochemical Test Negative (Negative)
== END ==
LOC: LAB 10:12
PROVIDERS: PCP Family Medicine; Referring Provider Family Medicine; Visit Provider Family Medicine
DX: Z12.11 Encounter for screening for malignant neoplasm of colon (principal)
CPT/HCPCS: 82274

== ENCOUNTER → 2023-06-03 06:45 | Outpatient (CLI) | payer MEDICARE, OTHER, SELFPAY ==
[2022-10-25 16:11] VITALS: BMI 24.0
--- NOTE | 2023-06-03 07:00 | DI.US.S_ITS ---
PROCEDURE: US ABD AORTA ANEURYSM SCREEN INDICATIONS: SCREENING TECHNIQUE: Real time scanning was performed of the aorta and iliac arteries, with image documentation. COMPARISON: [facility], CT, CT ABDOMEN PELVIS W CON, 10/13/2022, 11:09. FINDINGS: Aorta: Proximal aortic diameter measures 2.1 cm. Mid-aorta measures 1.9 cm. Distal aortic diameter is 1.8 cm. Minimal atherosclerotic plaque in the distal abdominal aorta. Iliac arteries: Right common iliac artery measures 1.3 cm. Left common iliac artery measures 1.0 cm. IMPRESSION: Minimal atherosclerotic plaque in the distal abdominal aorta. No evidence for abdominal aortic aneurysm. No iliac artery aneurysm identified. At the current size of the abdominal aorta of 2.1 cm, no follow-up imaging required per consensus criteria. Dictated by: Teodoro Urbano M.D. on 06/03/2023 at 9:59 Approved by: Teodoro Urbano M.D. on 06/03/2023 at 10:01
== END ==
PROVIDERS: PCP Family Medicine; Referring Provider Family Medicine; Visit Provider Family Medicine
DX: Z13.6 Encounter for screening for cardiovascular disorders (principal)
CPT/HCPCS: 76706

== ENCOUNTER → 2024-04-19 07:50 | Outpatient (CLI) | payer MEDICARE, OTHER, SELFPAY ==
[2022-10-25 16:11] VITALS: BMI 24.0
[2024-04-19 08:23] LABS: Hemoglobin A1C% w Est Avg Glu 5.9 % (4.0-6.0)
[2024-04-19 08:24] LABS: Add Manual Diff / Slide Review NO; Basophils Absolute Auto 0 /uL (0-100); Basophils Percent Auto 0.4 % (0-2); Eosinophils Absolute Auto 200 /uL (0-450); Eosinophils Percent Auto 3.9 % (2-4); Hematocrit 42.7 % (41-53); Hemoglobin 14.3 g/dL (13.5-17.5); Lymphocytes Absolute Auto 1500 /uL (1100-4500); Lymphocytes Percent Auto 27.1 % (25-40); Mean Corpuscular HGB Conc 33.6 % (30-36); Mean Corpuscular Hemoglobin 31.9 PG (26-34); Mean Corpuscular Volume 94.8 fL (80-100); Monocytes Absolute Auto 400 /uL (0-900); Monocytes Percent Auto 7.5 % (3-14); Neutrophils Absolute Auto 3500 /uL (1500-7000); Neutrophils Percent Auto 61.1 % (50-75); Platelet Count 285 X10^3/uL (150-400); Red Cell Distribution Width 13.1 % (11.6-14.8); White Blood Cell Count 5.7 X10^3/uL (4.5-11.0)
[2024-04-19 08:39] LABS: Alanine Aminotransferase 25 IU/L (<50); Albumin 4.7 g/dL (3.5-5.0); Alkaline Phosphatase 67 U/L (38-126); Aspartate Aminotransferase 29 IU/L (17-59); BUN Creatinine Ratio 15.3 (6-22); Bilirubin Total 1.3 mg/dL (0.2-1.3); Blood Urea Nitrogen 13 mg/dL (9-20); Calcium 9.2 mg/dL (8.4-10.2); Carbon Dioxide 26 mmol/L (22-32); Chloride 100 mmol/L (98-107); Cholesterol 176 mg/dL (140-199); Estimated Glomerular Filt Rate > 60 mL/min (>60); Globulin 2.4 g/dL (1.7-4.1); Glucose 108 mg/dL (80-110); HDL Cholesterol 58 mg/dL (40-60); HEMOLYSIS < 15 (0-50); LDL Cholesterol Calculated 103 mg/dL (<100); Sodium 135 mmol/L (137-145); Total Protein 7.1 g/dL (6.3-8.2); Triglycerides 74 mg/dL (35-150)
== END ==
PROVIDERS: PCP Family Medicine; Referring Provider Family Medicine; Visit Provider Family Medicine
DX: Z00.00 Encounter for general adult medical examination without abnormal findings (principal); R73.01 Impaired fasting glucose; E78.5 Hyperlipidemia, unspecified; Z12.5 Encounter for screening for malignant neoplasm of prostate; D64.9 Anemia, unspecified
CPT/HCPCS: 36415; 80053; 80061; 83036; 85025; G0103

== ENCOUNTER → 2024-05-17 10:15 | Outpatient (CLI) | payer MEDICARE, OTHER, SELFPAY ==
[2022-10-25 16:11] VITALS: BMI 24.0
[2024-05-18 09:40] LABS: Fecal Immunochemical Test Negative (Negative)
== END ==
PROVIDERS: PCP Family Medicine; Referring Provider Family Medicine; Visit Provider Family Medicine
DX: Z12.11 Encounter for screening for malignant neoplasm of colon (principal)
CPT/HCPCS: 82274